=== PATIENT | male | born 1985 | race Caucasian/White ===

== ENCOUNTER 2022-01-22 12:18 | Emergency (ER) | payer SELFPAY ==
[2022-01-22 12:27] VITALS: BP 129/85; PULSE 109; RESP 16; TEMP 36.8; O2SAT 97
[2022-01-22] MEDS: Balanced Salt Solution 15 ML BTL (12:59)
[2022-01-22] MEDS: Fluorescein STRIPS 100/BOX 1 MG (12:59)
[2022-01-22] MEDS: Tetracaine 0.5% 4 ML BTL (12:59)
--- NOTE | 2022-01-22 14:22 | ED.GENADUL_ITS ---
Discharge Plan Disposition Patient Disposition: OTHER Condition: Stable Discharge Details Clinical Impression: Corneal foreign body Primary Care Provider: Yonis Iglesias ED Provider: Malorie Staton Home Meds and New Rx's Prescriptions: Continued buprenorphine-naloxone 8-2 mg tablet, sublingual 1 tab SUBLINGUAL DAILY Label Comments: TAKE 2&1/2 TABLETS ORALLY DAILY Discharge Instructions Instructions: Eye Foreign Body (ED) Additional Instructions: It is extremely important that you go directly and immediately to [facility] Department in [facility] as we discussed for further evaluation and treatment of your corneal foreign body. Please return immediately to the emergency department if you develop any new or worsening symptoms, if your condition does not improve as expected, or if you become otherwise concerned. It is extremely important that you call soon as possible to make an appointment to be seen in follow-up for this visit by your primary care doctor. Referrals: Yonis Iglesias [Primary Care Provider] - Discharge Data Discharge Date/Time-TO BE ENTERED AT DEPARTURE: 01/22/22 14:25 Medical Decision Making Sanket Horowitz is a36 y/o man without reported history of medical problems presenting to the emergency department with eye pain. Pt reports that 2 days ago he was grinding metal. Several hours after this activity he noticed pain in the anterior aspect of his right eye. Pt reports that pain has gradually been getting worse, reports foreign body sensation. Denies deep eye pain, vision changes, purulent discharge, fever, any other pain, vomiting, diarrhea, numbness, weakness, cough, SOB. Pt reports that he has an appointment at [facility] this afternoon, but came to ED because of on-going pain becoming difficult to tolerate, denies any acute change in pain. On exam Pt is well and non-toxic appearing. Punctate corneal foreign body without corneal abrasion or ulceration. Normal visual acuity b/l and in right eye. Exam/hx at this time is not c/w globe rupture, endophthalmitis, glaucoma, acute optial artery/vein pathology. I discussed Pt with [facility], who states Pt can be sent to their office immediately for further evaluation. I discussed plan with Pt for him to be discharged immediately and directly to [facility]. Pt verbalizes understanding and is amenable. I had a discussion with Patient regarding return to emergency department precautions, home care, and importance of outpatient follow-up immediately and directly with [facility] now. Pt verbalizes understanding of the plan and is amenable. Patient discharged to [facility] with clear plan for outpatient follow-up. All questions were answered. Disposition decision was made weighing the risks and benefits of hospitalization versus outpatient treatment, the risk for further decompensation, and the patient's wishes. HPI General Date/Time Provider Initiated Documentation: 01/22/22 12:56 . Limitations to Documentation: no limitations . Information obtained by: patient, RN notes reviewed and old records reviewed . HPI Narrative: Sanket Horowitz is a36 y/o man without reported history of medical problems presenting to the emergency department with eye pain. Pt reports that 2 days ago he was grinding metal. Several hours after this activity he noticed pain in the anterior aspect of his right eye. Pt reports that pain has gradually been getting worse, reports foreign body sensation. Denies deep eye pain, vision changes, purulent discharge, fever, any other pain, vomiting, diarrhea, numbness, weakness, cough, SOB. Pt reports that he has an appointment at [facility] this afternoon, but came to ED because of on-going pain becoming difficult to toerate, denies any acute change in pain. Related Data Home Medications Medication Instructions Recorded Confirmed buprenorphine 8 mg-naloxone 2 mg 1 tab sublingual DAILY 01/22/22 01/22/22 sublingual tablet Allergies Allergy/AdvReac Type Severity Reaction Status Date / Time No Known Allergies Allergy Unverified 01/22/22 12:30 General Stated Complaint: EyeProblem JOSIAH: 4 Review of Systems Narrative: Constitutional: denies fevers Eyes: reports right anterior eye pain/foreign body sensation, denies eye discharge, vision changes, left eye symptoms ENT: denies ear pain, dental pain, sore throat Cardiovascular: denies chest pain Respiratory: denies SOB, cough GI: denies abdominal pain, vomiting, diarrhea : denies flank pain MSK: denies back pain, neck pain, arthralgias, myalgias Skin: denies rash Neuro: denies headaches, numbness, weakness PFSH All Active Problems (Updated 01/22/22 @ 14:20 by Malorie Staton MD) Corneal foreign body (Acute) Social History Smoking/Tobacco Use Status: Current every day Tobacco Type: cigarettes Smoking risk assessment performed?: Yes Drug use: Never Substance use type: does not use Details: is on suboxone Do you feel safe in your relationship?: Yes Exam Narrative Exam Narrative: Constitutional: well and [id number], pleasant, conversing normally HENT: head atraumatic/normocephalic/normal inspection, mucous membranes moist Eyes: bilateral conjunctiva normal, sclera normal, pupils 3mm b/l, right eyelids swept, no FB, apparent punctate corneal FB at 3 o-clock position, no corneal abrasion/ulceration uwith fluorescein staining, negative seidels sign, EOMI intact and painless Neck: no stridor, normal ROM, trachea midline Resp: normal work of breathing, speaking in full sentences Cardio: normal rate, normal rhythm Skin: warm, dry, normal color, no rash Neuro: alert, not altered, grossly non-focal, normal tone Ext: moving all extremities equally Psych: normal mood, normal affect, normal behavior Course Vital Signs Vital signs: Vital Signs Temperature 36.8 C 01/22/22 12:27 Pulse 109 H 01/22/22 12:27 Respiratory Rate 16 01/22/22 12:27 Blood Pressure 129/85 01/22/22 12:27 Pulse Oximetry 97 01/22/22 12:27 Temperature 36.8 C 01/22/22 12:27 Temperature Source Oral 01/22/22 12:27 Pulse 109 H 01/22/22 12:27 Respiratory Rate 16 01/22/22 12:27 Respiratory Effort 01/22/22 12:27 Blood Pressure 129/85 01/22/22 12:27 Blood Pressure Position Sitting 01/22/22 12:27 Pulse Oximetry 97 01/22/22 12:27 Pain Level 6 01/22/22 12:27 PAWSS Have you Been Recently Intoxicated or Drunk Within the Last 30 days?: Yes Have you Ever Experienced Previous Episodes of Alcohol Withdrawal?: No Have you ever Experienced Withdrawal Seizures?: No Have you ever Experienced Delirium Tremens(DT)s?: No Have you ever undergone Alcohol Rehabilitation Treatment (i.e, inpt ot outpatient treatment programs)?: No Have you ever Experienced Blackouts?: Yes Have you ever Combined Alcohol with other Downers within the last 90 days?: No Have you ever Combined Alcohol with any other Substance of Abuse during the last 90 days?: No Result: 2
== END 2022-01-22 14:25 | disposition other institution (70) ==
PROVIDERS: Emergency Provider Student in an Organized Health Care Education/Training Program; PCP Nurse Practitioner Family
DX: T15.01XA Foreign body in cornea, right eye, initial encounter (principal); X58.XXXA Exposure to other specified factors, initial encounter
CPT/HCPCS: 99283

== ENCOUNTER 2024-08-07 12:22 | Emergency (ER) | payer MEDICAID, SELFPAY ==
--- NOTE | 2024-08-07 12:15 | DI.US_ITS ---
Exam(s) US LOWER EXTREMITY VENOUS LT EXAM: US LOWER EXTREMITY VENOUS LT CLINICAL HISTORY: swelling TECHNIQUE: Grayscale, color, and doppler imaging of the deep venous system of the lower extremity w as performed. COMPARISON: No exams were available for comparison FINDINGS: There is no evidence of intraluminal thrombus and there is normal compression and augmentation demons trated within the common femoral vein, femoral vein, and popliteal vein. In the ipsilateral calf the interrogated veins also exhibit normal compression/ augmentation properti es. The ipsilateral saphenofemoral junction is patent. Although there is no evidence of DVT, there are significant findings in the calf. There multiple thr ombosis tortuous varicose veins throughout the length of the medial calf with extension of intralumin al thrombus into varicose veins at the level of the knee and distal thigh. The approximate length of the thrombus is 24 cm and the cephalad extent of the thrombus is less than 1 cm from the greater sap henous vein in the distal thigh (just above the knee). There is no evidence of intraluminal thrombus within the greater saphenous vein at and above the knee level. The greater saphenous vein in the ip silateral calf is also not involved. IMPRESSION: 1. No evidence of DVT in the left lower extremity. 2. However, there is extensive thrombosis of varicose veins in the ipsilateral calf as described abo ve. Discussed by phone with ER physician. DATA REPOSITORY:
[2024-08-07 12:27] VITALS: BP 143/92; PULSE 99; RESP 17; TEMP 36.6; O2SAT 99
[2024-08-07 12:51] VITALS: RESP 16
--- NOTE | 2024-08-07 13:35 | W.ED.GENAD ---
Discharge Plan Disposition Patient Disposition: Home Condition: Stable Discharge Details Clinical Impression: Acute superficial venous thrombosis of left lower extremity Primary Care Provider: Zina Rick ED Provider: Cesar Staton Home Meds and New Rx's Prescriptions: New Xarelto 10 mg tablet 10 mg PO DAILY Qty: 44 0RF Rx Instructions: for 35 days Continued acetaminophen 500 mg capsule 500 mg PO DIRECTED PRN buprenorphine-naloxone [Suboxone] 12-3 mg film 1 film sublingual DAILY Patient Comments: PLACE ONE FILM UNDER THE TONGUE EVERY MORNING buprenorphine-naloxone [Suboxone] 8-2 mg film 1 film sublingual DAILY Patient Comments: PLACE ONE FILM UNDER THE TONGUE EVERY MORNING Discontinued ibuprofen 400 mg tablet 400 mg PO Q8H Discharge Instructions Instructions: Superficial vein phlebitis and thrombosis Additional Instructions: Please take blood thinner Xarelto as prescribed. You were given your initial dose here in the emergency department today. Your next dose is tomorrow. Please be sure to pick pulling machine tender your prescription prior to tomorrow afternoon. Please follow-up with your primary care physician. Call today to arrange timely follow-up. You will need reassessment and additional outpatient diagnostic testing. Return to the ER immediately for any worsening or new concerning symptoms. Referrals: Zina Rick [Primary Care Provider] - Discharge Data Discharge Date/Time-TO BE ENTERED AT DEPARTURE: 08/07/24 13:54 HPI General Mode of arrival: ambulatory. Date/Time Provider Initiated Documentation: 08/07/24 12:26. Limitations to Documentation: no limitations. Information obtained by: patient. HPI Narrative: 39-year-old male presents with approximately 2 weeks of left lower extremity swelling and pain. Sent by PCP who was concerned for DVT. No associated fever. No prolonged immobility, surgery or trauma recently. Related Data Home Medications ?Medication ?Instructions ?Recorded ?Confirmed acetaminophen 500 mg capsule 500 mg PO DIRECTED PRN 10/10/22 08/07/24 buprenorphine 12 mg-naloxone 3 mg 1 film sublingual DAILY 08/07/24 08/07/24 sublingual film (Suboxone) buprenorphine 8 mg-naloxone 2 mg 1 film sublingual DAILY 08/07/24 08/07/24 sublingual film (Suboxone) rivaroxaban 10 mg tablet (Xarelto) 10 mg PO DAILY #44 tabs 08/07/24 Previous Rx's ?Medication ?Instructions ?Recorded rivaroxaban 10 mg tablet (Xarelto) 10 mg PO DAILY #44 tabs 08/07/24 Allergies Allergy/AdvReac Type Severity Reaction Status Date / Time No Known Allergies Allergy Unverified 08/07/24 12:31 General Stated Complaint: Vascular JOSIAH: 2 Review of Systems Constitutional Constitutional: Denies fever(s) Cardiovascular Cardiovascular: Denies chest pain Exam Const General: cooperative and no acute distress Resp Auscultation: clear to auscultation bilaterally, no rales, no rhonchi and no wheezes Cardio Rate: regular rate and not tachycardic Rhythm: regular rhythm Skin General skin exam: no rashes or lesions noted Neuro General: patient alert, patient awake and tone normal Extrem General: other (LLE swelling and varicose veins ttp over medial knee, no erythema) Course Vital Signs Vital signs: Vital Signs Temperature 36.6 C 08/07/24 12:27 Pulse 99 H 08/07/24 12:27 Respiratory Rate 17 08/07/24 12:27 Blood Pressure 143/92 H 08/07/24 12:27 Pulse Oximetry 99 08/07/24 12:27 Temperature 36.6 C 08/07/24 12:27 Temperature Source Oral 08/07/24 12:27 Pulse 99 H 08/07/24 12:27 Respiratory Rate 16 08/07/24 12:51 Respiratory Effort Normal 08/07/24 12:51 Respiratory Depth Normal 08/07/24 12:51 Respiratory Pattern Normal 08/07/24 12:51 Blood Pressure 143/92 H 08/07/24 12:27 Blood Pressure Position Sitting 08/07/24 12:27 Pulse Oximetry 99 08/07/24 12:27 Oxygen Delivery Method Room Air 08/07/24 12:27 Oxygen Flow Rate 0 08/07/24 12:27 Pain Level 4 08/07/24 12:27 Comment Worse with exertion. 08/07/24 12:27 Medical Decision Making 39-year-old male presents with approximately 2 weeks of left lower extremity swelling and pain. Sent by PCP who was concerned for DVT. Patient is hemodynamically stable. Saturating well in no respiratory distress. Exam consistent with likely superficial thrombophlebitis. Considered DVT. Left lower extremity ultrasound was interpreted by Dr. Cleary. I spoke with Dr. Cleary who notes ultrasound demonstrates extensive superficial venous thrombus. Plan to initiate treatment with Xarelto 10 mg x 45 days and will have the patient follow-up with PCP. Imaging Data Radiologic Study: Imaging: Ultrasound Radiologist's impression: There is no evidence of intraluminal thrombus and there is normal compression and augmentation demonstrated within the common femoral vein, femoral vein, and popliteal vein. In the ipsilateral calf the interrogated veins also exhibit normal compression/ augmentation properties. The ipsilateral saphenofemoral junction is patent. Although there is no evidence of DVT, there are significant findings in the calf. There multiple thrombosis tortuous varicose veins throughout the length of the medial calf with extension of intraluminal thrombus into varicose veins at the level of the knee and distal thigh. The approximate length of the thrombus is 24 cm and the cephalad extent of the thrombus is less than 1 cm from the greater saphenous vein in the distal thigh (just above the knee). There is no evidence of intraluminal thrombus within the greater saphenous vein at and above the knee level. The greater saphenous vein in the ipsilateral calf is also not involved. Quality:SDOH Health Related Social Needs: No Data to Display PFSH All Active Problems (Updated 08/07/24 @ 13:35 by Cesar Staton MD) Acute superficial venous thrombosis of left lower extremity (Acute) Medical History (Updated 08/07/24 @ 13:35 by Cesar Staton MD) PTSD (post-traumatic stress disorder) Adjustment disorder with anxiety Opioid use disorder Social History Smoking/Tobacco Use Status: Current every day Tobacco Type: cigarettes Smoking risk assessment performed?: Yes Drug use: Never Substance use type: does not use Details: is on suboxone Housing: apartment Do you feel safe in your relationship?: Yes
--- OUTSIDE RECORDS SUMMARY | 2024-08-07 13:36 | XMS_ITS | Encounter Summary ---
Author Organization [facility] Address [address] [place] [id number] Care Team Providers Care Missile Inspector Name Role Phone Katharine Cortés ALYSIA Primary Care Provider [phone] Reason for Visit * Reason Onset Date Comments Appointment Related 03/21/2022 Encounter Details Date Type Department Care Team (Late st Contact Info) Description 03/21/2022 Telephone [facility] - [address] [address] Hannah Waggoner MD [address] [place] [address], [address] [place] [id number] Appointment Related Social History Tobacco Use Types Packs/Day Years Used Date Smoking Tobacco: Every Day Smokeless Tobacco: Never Alcohol Use Standard Drinks/Week Comments Yes 0 (1 standard drink = 0.6 oz pur e alcohol) Sex and Gender Information Value Date Recorded Sex Assigned at Not on file Legal Sex Male 23:41 EDT Gender Identity Male 03/04/2022 7:43 EDT Sexual Orientation Not on file COVID-19 Exposure Response Date Recorded In the last 10 days, have yo u been in contact with someone who was confirmed or suspected to have Coronavirus/COVID-19? Unable to assess 03/04/2022 0:08 EDT documented as of this encounter Functional Status * Are you deaf or do you have serious difficulty hearing? Answer Date of Assessment Author No 03/04/2022 0:44 EDT Sumit Blackwood RN documented as of this encounter Miscellaneous Notes * Telephone Encounter - Nichelle Ashley RN - 03/21/20[address] Waggoner in clinic. Sutures are Vicryl and OK to fall out, but patient should notbe actively pulling them out. If there is a wound, it will heal by secondary intention. Patient reports no open wound; healing well. Patient verbalized understanding and denied additionalquestions. * Telephone Encounter - Eleonora Waddell - 03/21/2022 1532 EDT Spoke to pt with new ultrasound date 04/06/22 check in at 1315 for 1345 scan. Patient has questions regarding his stitches that are falling out. Will route to nursing. * Telephone Encounter - Nohemi Wolff - 03/21/2022 1145 EDT Patient unable to make the u/s today and needs to reschedule both appointments. Plate Glass Polisher transferred to exterminator helper. documented in this encounter Plan of Treatment Not on file documented as of this encounter Visit Diagnoses Not on filedocumented in this encounter Care Teams Missile Inspector Relationship Specialty Start Date End Date Katharine Cortés APRN [address] [place] [id number] PCP - General Family Medicine - Primary Care 03/21/22 documented as of this encounter
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
--- OUTSIDE RECORDS SUMMARY | 2024-08-07 13:36 | XMS_ITS | Encounter Summary ---
Author Organization [facility] Address [address] [place] [address] Care Team Providers Care Golf Technician Name Role Phone None, Provider Primary Care Provider Unavailabl e Reason for Visit * Reason Onset Date Comments Other 03/14/2022 Encounter Details Date Type Department Care Team (Late st Contact Info) Description 03/14/2022 Telephone [facility] Sports Medicine Program - [address] [place] [address] Dayanara Carrera RN [address] [place] [address] Other Social History Tobacco Use Types Packs/Day Years [...] encounter Miscellaneous Notes * Telephone Encounter - Dayanara Carrera RN - 03/14/2022 1005 EDT Called susana to see where he is as he had an appointment with Dr. Frank today to post op eval. No answer- left a msg asking him to call the office Called second number on file- Susana answered stated that he couldn't make it today and was unable to come in today, he would like to reschedule the appointment. He states he has been doing okay painwise. I explained to him how important follow up is following this type of injury. He verbalized an understanding. New appointment will be made with trauma team. documented in this encounter Plan of Treatment Not on file documented as of this encounter Visit Diagnoses Not on filedocumented in this encounter Care Teams Golf Technician Relationship Specialty Start Date End Date None, Provider PCP - General 03/04/22 03/20/22 documented as of this encounter
--- OUTSIDE RECORDS SUMMARY | 2024-08-07 13:36 | XMS_ITS | Encounter Summary ---
Author Organization [facility] Address [address] [place] [address] Care Team Providers Care Sand Mill Operator Core Sand Name Role Phone Katharine Cortés ALYSIA Primary Care Provider [phone] Encounter Details Date Type Department Care Team (Late st Contact Info) Description 04/02/2022 Orders Only [facility] Orthopedic Trauma - [address] [address] Israel Hopkins MD [address] [place] [address] Closed fracture of shaft of right femur with routine healing, unspecified fracture morphology, subsequent encounter (Primary Dx) Social History Tobacco [...] Blackwood RN documented as of this encounter Plan of Treatment Not on file documented as of this encounter Results * XR FEMUR RIGHT 2 OR MORE VIEWS (04/13/2022 11:43 EDT) Anatomical Region Laterality Modality Lower Extremities Right Computed Radio graphy 04/13/2022 12:1 2 EDT Impressions 04/13/2022 12:12 EDT FINDINGS / IMPRESSION: AP and lateral views of the right femur show interval intramedullary nailing of the proximal femur with 2 proximal pins and 2 distal interlocking screws. The comminuted femoral fracture shows evidence of ongoing healing with satisfactory alignment. There is punctate metallic debris around the fracture site. Narrative 04/13/2022 12:12 EDT EXAM/TECHNIQUE: XR FEMUR RIGHT 2 OR MORE VIEWS ??04/13/2022 11:10 AM HISTORY: ?? Assess healing COMPARISON: Preoperative radiographs 03/04/2022. Procedure Note Jovan Kearns, DO - 04/13/2022 EXAM/TECHNIQUE: XR FEMUR RIGHT 2 OR MORE VIEWS 04/13/2022 11:10 AM HISTORY: Assess healing COMPARISON: Preoperative radiographs 03/04/2022. IMPRESSION FINDINGS / IMPRESSION: AP and lateral views of the right femur show interval intramedullarynailing of the proximal femur with 2 proximal pins and 2 distalinterlocking screws. The comminuted femoral fracture shows evidence ofongoing healing with satisfactory alignment. There is punctate metallicdebris around the fracture site. us Israel Hopkins MD IMG DIAGNOSTIC IMAGING ORD ERABLES Final Result documented in this encounter Visit Diagnoses Diagnosis Closed fracture of shaft of right femur with routine healing, unspecified fracture morphology, subsequent encounter- Primary Closed fracture of shaft of right femur with routine healing, unspecified fracture morphology, subsequent encounter documented in this encounter Care Teams Sand Mill Operator Core Sand Relationship Specialty Start Date End Date Katharine Cortés APRN [address] [place] [phone] PCP - General Family Medicine - Primary Care 03/21/22 documented as of this encounter
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
--- OUTSIDE RECORDS SUMMARY | 2024-08-07 13:36 | XMS_ITS | Encounter Summary ---
Author Organization [facility] Address [address] [place] [address] Care Team Providers Care Weight And Test Bar Clerk Name Role Phone Katharine Cortés ALYSIA Primary Care Provider [phone] Encounter Details Date Type Department Care Team (Latest Contact Info) Description 04/13/2022 11:10 EDT - 04/13/2022 23:59 EDT [address] Encounter [address] [place], [place] [id number] Closed fracture of shaft of right femur with routine healing, unspecified fracture morphology, subsequent encounter Discharge Disposition: Home or Self Care Social History Tobacco Use Types Packs/Day Years [...] Blackwood RN documented as of this encounter Medications at Time of Discharge bacitracin zinc 500 unit/gram ointment Apply thin film. 14 g 03/06/2022 lidocaine-priloc delmer (EMLA) cream Apply to penis 20-30 minutes prior to intercourse and wipe off. 30 g 2 04/11/2022 methocarbamoL (ROBAXIN) 500 mg tablet Take 1-2 Tablets by mouth 4 times daily. 60 Tablet 03/16/2022 methocarbamoL (ROBAXIN) 500 mg tablet Take 2 Tablets by mouth every 6 hours as needed (muscle spasms). 25 Tablet 03/06/2022 oxyCODONE (ROXICODONE) 10 mg immediate release tablet Take 0.5-1 Tablets by mouth every 6 hours as needed for Pain. Daily Max: 40 mg 24 Tablet 03/06/2022 polyethylene glycol 3350 (MIRALAX) 17 gram packet Take 17 g by mouth daily as needed (constipation). 03/06/2022 documented as of this encounter Discharge Disposition Disposition Code Departure Means Destination Home or Self Care documented in this encounter Plan of Treatment Not on file documented as of this encounter Procedures Procedure Name Priority Date/Time Associated Diagnosis Comments XR FEMUR RIGHT 2 OR MORE VIEWS Routine 04/13/2022 11:43 EDT Closed fracture of shaft of right femur with routine healing, unspecified fracture morphology, subsequent encounter documented in this encounter Results * XR FEMUR RIGHT [...] Preoperative radiographs 03/04/2022. Procedure Note Jovan Kearns, - 04/13/2022 EXAM/TECHNIQUE: XR FEMUR RIGHT 2 [...] encounter documented in this encounter Care Teams Weight And Test Bar Clerk Relationship Specialty Start Date End Date Katharine Cortés APRN [address] [place] [phone] PCP - General Family Medicine - Primary Care 03/21/22 documented as of this encounter
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
--- OUTSIDE RECORDS SUMMARY | 2024-08-07 13:36 | XMS_ITS | Encounter Summary ---
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 Maldonado RN) 1019 (Given - Provider: Ilya Howard, JOAQUÍN) 0911 (Given - Provider: Ilya Howard, JOAQUÍN) docusate sodium (COLACE) capsule 200 mg 200 mg, oral, 2 TIMES DAILY, First dose on 03/04/22 at 2100, Until Discontinued, Routine 2017 (Given - Provider: Ena Pascual RN) 0804 (Given - Provider: Ilya Howard, JOAQUÍN)2017 (Given - Provider: Raegan Archuleta, JOAQUÍN) 0911 (Given - Provider: Ilya Howard, JOAQUÍN) enoxaparin (LOVENOX) injection 30 mg 30 mg, subcutaneous, EVERY 12 HOURS, First dose on Sat03/05/22 at 0900, Until Discontinued, Routine 08 (Given - Provider: Ilya Howard, JOAQUÍN)2017 (Given - Provider: Raegan Archuleta RN) 0912 (Given - Provider: Ilya Howard, JOAQUÍN) fentaNYL citrate (PF) injection 100 mcg (COMPLETED) 100 mcg, intravenous, NOW X1, 1 dose, On 03/04/22 at 0545, STAT 0558 (Given - Provider: Stacie Joseph RN - Comment: Given by previous shift RN, please see paper trauma record) fentaNYL citrate (PF) injection 50 mcg (COMPLETED) 50 mcg, intravenous, NOW X1, 1 dose, On 03/04/22 at 0630, STAT 0621 (Given - Provider: Magui Yang RN) iohexoL (OMNIPAQUE 350) solution 150 mL (COMPLETED) 150 mL, intravenous, Once in imaging, 1 dose, Starting on 03/04/22 at 0210, Until 03/04/22 at 0238, Routine, Imaging Protocol Orders 0238 (Given - Provider: Araceli Marin) ketAMINE in NaCl, iso-osmotic (KETALAR) 50 mg/5 mL (10 mg/mL) IV injection 20 mg (COMPLETED) 20 mg, intravenous, NOW X1, 1 dose, On 03/04/22 at 0545, STAT 0557 (Given - Provider: Stacie Joseph RN - Comment: Given by previous shift RN- please see paper trauma record) metronidazole (FLAGYL) infusion 500 mg 500 mg, intravenous, Administer over 30 Minutes, PRE-OP ONCE, 1 dose, On 05/06/22 at 0800, Type of Therapy: Empiric, Suspected Indication (Select all that apply): Other, Other Indication: soil contaminated trauma, ID Consult: No, Routine Multivitamins with Minerals tablet 1 Tablet 1 Tablet, oral, DAILY, First dose on 03/04/22 at 1815, Until Discontinued, Routine 1832 (Given - Provider: Levi Maldonado RN) 1019 (Given - Provider: Ilya Howard RN) 0911 (Given - Provider: Ilya Howard RN) polyethylene glycol 3350 (MIRALAX) packet 17 g 17 g, oral, DAILY, First dose on 03/04/22 at 1815, Until Discontinued, Routine 1756 (Not Given - Provider: Levi Maldonado RN - Reason: Patient/family refused) 0803 (Given - Provider: Ilya Howard, JOAQUÍN) 0912 (Given - Provider: Ilya Howard, JOAQUÍN) povidone-iodine solution 5% (Skin and Nasal Antiseptic) 1 Kit 1 Kit, nasal, Once (Without Time Specified), 1 dose, Starting on 03/04/22 at 1746, Until Sat03/06/22 at 1936, Routine senna (SENOKOT) tablet 2 Tablet 2 Tablet, oral, 2 TIMES DAILY, First dose on 03/04/22 at 2100, Until Discontinued, Routine 2017 (Given - Provider: Ena Pascual, RN) 0805 (Given - Provider: Ilya Howard, RN)2016 (Given - Provider: Raegan Archuleta RN) 09 (Given - Provider: Ilya Howard, RN) zinc sulfate (ZINCATE) capsule 220 mg 220 mg, oral, DAILY, First dose on 03/04/22 at 1815, Until Discontinued, Routine 183 (Given - Provider: Levi Maldonado RN) 1019 (Given - Provider: Ilya Howard, JOAQUÍN) 09 (Given - Provider: Ilya Howard, JOAQUÍN) Continuous Medication Order 03/04/2022 03/05/2022 03/06/2022 lactated ringers (LR) infusion at 25 mL/hr, intravenous, CONTINUOUS, Starting on 03/04/22 at 1100, Until Sat03/06/22 at 1936, Routine, Preprocedure 1031 (New Bag - Provider: Goldie Fuentes RN)1113 (Paused - Provider: SAMMY Bush - Comment: Switch to gravity)1114 (Restarted - Provider: SAMMY Bush)1127 (Continued by Anesthesia - Provider: SAMMY Bush)1254 (New Bag - Provider: SAMMY Bush)1405 (Anesthesia Volume Adjustment - Provider: SAMMY Bush)1545 (Anesthesia Volume Adjustment - Provider: SAMMY Bush) lactated ringers (LR) infusion (CANCELED) at 100 mL/hr, intravenous, PACU CONTINUOUS, Starting on 03/04/22 at 1530, Until 03/04/22 at 1745, Routine, Recovery (only) 1545 (Rate Documented - Provider: Padmini Ryan RN)1615 (New Bag - Provider: Padmini Ryan RN) PRN Medication Order 03/04/2022 03/05/202203/06/2022 bisacodyL (DULCOLAX) suppository 10 mg 10 mg, rectal, DAILY PRN, Starting on Sat03/04/22 at 1746, Until Sat03/06/22 at 1936, Constipation, Routine bupivacaine (PF) (MARCAINE) 0.25 % (2.5 mg/mL) injection (CANCELED) PRN, Starting on Sat03/04/22 at 1524, Until Sat03/04/22 at 1539, Routine, Intraprocedure 1524 (Given - Provider: Hannah Waggoner MD) calcium carbonate (TUMS) 200 mg calcium (500 mg) per chewable tablet tablet,chewable 2 Tablet 2 Tablet, oral, EVERY 2 HOURS PRN, Starting on Sat03/04/22 at 1746, Until Sat03/06/22 at 1936, epigastric stress, Routine meperidine (PF) (DEMEROL) injection 12.5 mg 12.5 mg, intravenous, EVERY 1 HOUR PRN, 2 doses, Starting on Sat03/04/22 at 1548, Until Sat03/06/22 at 1936, shivering, Routine methocarbamoL (ROBAXIN) tablet 1,000 mg 1,000 mg, oral, EVERY 6 HOURS PRN, Starting on Sat03/04/22 at 1727, Until Sat03/06/22 at 1936, muscle spasms, Routine 1728 (Given - Provider: Padmini Ryan RN) 0216 (Given - Provider: Ena Pascual RN)0805 (Given - Provider: Ilya Howard RN)1455 (Given - Provider: Ilya Howard, JOAQUÍN) 0911 (Given - Provider: Ilya Howard, RN) nicotine (NICOTROL) 10 mg inhaler kit 1 Inhaler 1 Inhaler, inhalation, EVERY 2 HOURS PRN, Starting on Sat03/05/22 at 0014, Until Sat03/06/22 at 1936, Smoking Cessation, Routine 0420 (Given - Provider: Ena Pascual RN)1455 (Given - Provider: Ilya Howard, JOAQUÍN) nicotine inhaler (delivery device) 1 Each, inhalation, PRN, Starting on Sat03/05/22 at 0022, Until Sat03/06/22 at 1936, Smoking Cessation 0420 (Given - Provider: Ena Pascual RN)1455 (Given - Provider: Ilya Howard, JOAQUÍN) ondansetron (PF) (ZOFRAN) injection 4 mg(Linked Group 2) 4 mg, intravenous, EVERY 6 HOURS PRN, Starting on Sat03/04/22 at 1746, Until Sat03/06/22 at 1936, Nausea, Routine ondansetron (ZOFRAN-ODT) disintegrating tablet 4 mg(Linked Group 2) 4 mg, oral, EVERY 6 HOURS PRN, Starting on Sat03/04/22 at 1746, Until Sat03/06/22 at 1936, Nausea, Routine oxyCODONE (ROXICODONE) immediate release tablet 5-10 mg 5-10 mg, oral, EVERY 4 HOURS PRN, Starting on Sat03/06/22 at 1245, Until Sat03/06/22 at 1936, Pain, Routine 1421 (Given - Provider: Ilya Howard RN) oxyCODONE (ROXICODONE) immediate release tablet 5-15 mg (CANCELED) 5-15 mg, oral, EVERY 3 HOURS PRN, Starting on Sat03/04/22 at 1727, Until Sat03/06/22 at 1238, Pain, Routine 1728 (Given - Provider: Padmini Ryan RN)2017 (Given - Provider: Ena Pascual RN) 0216 (Given - Provider: Ena Pascual RN)0621 (Given - Provider: Ena Pascual RN)1018 (Given - Provider: Ilya Howard, JOAQUÍN)1330 (Given - Provider: Ilya Howard, JOAQUÍN)1813 (Given - Provider: Ilya Howard, JOAQUÍN) 0628 (Given - Provider: Raegan Archuleta RN)1025 (Given - Provider: Ilya Howard, JOAQUÍN) No Frequency Medication Order 03/04/2022 03/05/2022 03/06/2022 dexAMETHasone (PF) (DECADRON) 10 mg/mL injection 1 dose, Starting on Sat03/04/22 at 0855, Until Sat03/06/22 at 1936 ropivacaine (PF) (NAROPIN) 5 mg/mL (0.5 %) injection 1 dose, Starting on Sat03/04/22 at 0855, Until Sat03/06/22 at 1936 Linked Groups Order Group 1: acetaminophen (TYLENOL) tablet 1,000 mgJump to med 1,000 mg, oral, EVERY 6 HOURS, First dose on Sat03/04/22 at 2000, Until Discontinued, Routine Or acetaminophen (TYLENOL) suppository 975 mgJump to med 975 mg, rectal, EVERY 6 HOURS, First dose on Sat03/04/22 at 2000, Until Discontinued, Routine Group 2: ondansetron (ZOFRAN-ODT) disintegrating tablet 4 mgJump to med 4 mg, oral, EVERY 6 HOURS PRN, Starting on Sat03/04/22 at 1746, Until Sat03/06/22 at 1936, Nausea, Routine Or ondansetron (PF) (ZOFRAN) injection 4 mgJump to med 4 mg, intravenous, EVERY 6 HOURS PRN, Starting on Sat03/04/22 at 1746, Until Sat03/06/22 at 1936, Nausea, Routine documented in this encounter Orders Medications Ordered That Fernando ht Not Have Been Administered Count Last Ordered Date First Ordered Date ceFAZolin (ANCEF) syringe 2 g 2 05/06/2022 03/04/2022 metronidazole (FLAGYL) infusion 500 mg 1 bacitracin zinc 500 unit/gram ointment 1 acetaminophen (TYLENOL) suppository 975 mg 1 03/04/2022 atropine 0.1 mg/mL syringe 0.5 mg 1 022 bisacodyL (DULCOLAX) suppository 10 mg 1 bupivacaine (PF) (MARCAINE) 0.25 % (2.5 mg/mL) injection 1 03/04/2022 calcium carbonate (TUMS) 200 mg calcium (500 mg) per chewable tablet tablet,chewable 2 Tablet 1 03/04/2022 ceFAZolin in dextrose (iso-o s) piggyback 2 g/100 mL 2 03/04/2022 dexAMETHasone (PF) (DECADRON ) 10 mg/mL injection 1 03/04/2022 diphenhydrAMINE (BENADRYL) i njection 12.5 mg 1 03/04/2022 fentaNYL citrate (PF) 50 mcg/mL injection 2 03/04/2022 fentaNYL citrate (PF) injection 25-50 mcg 1 03/04/2022 HYDROmorphone (DILAUDID) tablet 2-4 mg 1 HYDROmorphone (PF) (DILAUDID ) 0.5 mg/0.5 mL syringe 0.3-0.5 mg 1 03/04/2022 ketAMINE (KETALAR) 10 mg/mL IV injection vial 1 03/04/2022 meperidine (PF) (DEMEROL) in jection 12.5 mg 1 03/04/2022 midazolam (MDV) (VERSED) 1 mg/mL injection 1 03/04/2022 naloxone (NARCAN) injection 0.2 mg 1 2021 ondansetron (PF) (ZOFRAN) injection 4 mg 2 03/04/2022 ondansetron (ZOFRAN-ODT) dis integrating tablet 4 mg 1 03/04/2022 povidone-iodine solution 5% (Skin and Nasal Antiseptic) 1 Kit 1 03/04/2022 ropivacaine (PF) (NAROPIN) 5 mg/mL (0.5 %) injection 1 03/04/2022 Diet Count Last Ordered Date First Orde red Date DISCHARGE DIET 1 03/06/2022 Nursing Count Last Ordered Date First Orde red Date ACTIVITY INSTRUCTIONS 3 03/06/2022 BATHING INSTRUCTIONS 1 03/06/2022 WOUND CARE INSTRUCTIONS 2 03/06/2022 CONTRAINDICATION TO ANTICOAG ULATION THERAPY 1 03/04/2022 PT Count Last Ordered Date First Orde red Date PT EVALUATION AND TREAT 1 03/06/2022 Respiratory Care Count Last Ordered Date First Ordered Date DRY POWDERED OR METERED DOSE INHALER 1 02/15 IV Count Last Ordered Date First Orde red Date IV REQUEST 1 03/05/2022 Admission Count Last Ordered Date First Orde red Date ADMIT TO INPATIENT 1 03/04/2022 Transfer Count Last Ordered Date First Orde red Date ED BED REQUEST 1 03/04/2022 Discharge Count Last Ordered Date First Orde red Date DISCHARGE PATIENT 1 03/06/2022 Legal Count Last Ordered Date First Orde red Date MISCELLANEOUS DISCHARGE INSTRUCTIONS 2 02/15 Equipment Count Last Ordered Date First Orde red Date WALKER 1 03/06/2022 Case Request Count Last Ordered Date First Orde red Date CASE REQUEST OPERATING ROOM 1 03/04/2022 documented in this encounter Care Teams Pairer Odds Relationship Specialty Start Date End Date None, Provider PCP - General 03/04/22 03/20/22 documented as of this encounter
--- OUTSIDE RECORDS SUMMARY | 2024-08-07 13:36 | XMS_ITS | Encounter Summary ---
Author Organization [facility] Address [address] [place] [id number] Care Team Providers Care Dowel Setting Machine Operator Name Role Phone Katharine Cortés APRN Primary Care Provider [phone] Reason for Referral * Radiology Services (Routine/Next Available) - Authorization Not Required Specialty Diagnoses / Procedures Referred By Lionac t Referred To Contact Diagnoses Testicular injury, initial encounter Procedures US SCROTUM WITH LIMITED DOPPLER SleepKatharine concepcion PA-C Phone: tel: fax: [facility] Referral ID Status Reason Start Date Expiration Date Visits Requested Visits Authorized [id number] Authorization Not Required 03/05/2022 1 1 Reason for Visit * Radiology Services (Routine/Next Available) - Authorization Not Required Specialty Diagnoses / Procedures Referred By Jamal elaine Referred To Contact Diagnoses Testicular injury, initial encounter Procedures US SCROTUM WITH LIMITED DOPPLER SleepKatharine concepcion PA-C Phone: tel: fax: [facility] Referral ID Status Reason Start Date Expiration Date Visits Requested Visits Authorized [id number] Authorization Not Required 03/05/2022 1 1 Encounter Details Date Type Department Care Team (Latest Contact Info) Description 04/06/2022 13:45 EDT - 04/06/2022 23:59 EDT Hospital Encounter [facility] Radiology - [address] [phone] Testicular injury, initial encounter Discharge Disposition: Home or Self Care [...] 03/06/2022 methocarbamoL (ROBAXIN) 500 mg tablet Take 1-2 [...] 17 g by mouth daily as needed (constipation) . 03/06/2022 documented as of this encounter Discharge Disposition Disposition Code Departure Means Destination Home or Self Care documented in this encounter Plan of Treatment Not on file documented as of this encounter Procedures Procedure Name Priority Date/Time Associated Diagnosis Comments US SCROTUM WITH LIMITED DUPLEX Routine 04/06/2022 15:02 EDT Testicular injury, initial encounter documented in this encounter Results * US [...] PA-C IMG US ORDERABLES Final Res ult documented in this encounter Visit Diagnoses Diagnosis Testicular injury, initial encounter documented in this encounter Care Teams Dowel Setting Machine Operator Relationship Specialty Start Date End Date Katharine Cortés, ALYSIA [address] [place] [address] PCP - General Family Medicine - Primary Care 03/21/22 documented as of this encounter
--- OUTSIDE RECORDS SUMMARY | 2024-08-07 13:36 | XMS_ITS | Encounter Summary ---
Author Organization [facility] Address [address] [place] [id number] Care Team Providers Care Director Alumni Relations Name Role Phone None, Provider Primary Care Provider Unavailabl e Reason for Visit * Reason Onset Date Comments Other 03/13/2022 Encounter Details Date Type Department Care Team (Late st Contact Info) Description 03/13/2022 Telephone [facility] Sports Medicine Program - [address] [place] [address] Dayanara Carrera RN [address] [place] [address] Other Social History Tobacco Use Types Packs/Day [...] Telephone Encounter - Dayanara Carrera RN - 03/13/2022 1147 EDT Received a voicemail that Sanket is looking for a refill of robaxin. I called him back, in has muscle spasms in back of calf and posterior thigh especially after he hasbeen sitting down for a while. He reports that the muscle relaxants really help, he reports the spasms are intermittent. No s/s of blood clot. Taking Lovenox for DVT proph. Without issues Knee incisions medial spot using bandages to keep it covered as it was draining clear yellow drainage. No s/s of infection Incisions x3 on the thigh intact with dressing. [facility] seeing him (PT and nurse) Offered him an appointment today for eval, he declined to come in today for eval. Explained to him that we are happy to write him for more robaxin but Dr. Woodward would like to see an evaluate him prior to writing a script as we cannot determine why is going on. Discussed with trauma RN who said he can come into the clinic tomorrow 03/14/22 @9:45- appointment made Called [facility] to check in and see when they are seeing the patient again- awaiting call back Addendum: Reina from called back: Nursing has seen him once, no concerns at that time- social work is working with him. He stated he couldn't see nursing today as he had to move out of his current residence. Called [employer] food insecurity and looking for home. He was scheduled to see a nurse tomorrow but will be moved since he is seeing surgeon tomorrow and will schedule for a nurse visit for documented in this encounter Plan of Treatment Not on file documented as of this encounter Visit Diagnoses Not on filedocumented in this encounter Care Teams Director Alumni Relations Relationship Specialty Start Date End Date None, Provider PCP - General 03/04/22 03/20/22 documented as of this encounter
--- OUTSIDE RECORDS SUMMARY | 2024-08-07 13:36 | XMS_ITS | Encounter Summary ---
Author Organization [facility] Address [address] [place] [address] Care Team Providers Care Drawing Operator Name Role Phone Katharine Cortés APRN Primary Care Provider [phone] Encounter Details Date Type Department Care Team (Late st Contact Info) Description 06/07/2022 Orders Only [facility] Orthopedic Trauma - [address] [address] Israel Hopkins MD [address] [place] [address] Type I or II open fracture of right femur with routine healing, unspecified fracture morphology, unspecified portion of femur, subsequent encounter (Primary Dx) Social History Tobacco [...] as of this encounter Visit Diagnoses Diagnosis Type I or II open fracture of right femur with routine healing, unspecified fracture morphology, unspecified portion of femur, subsequent encounter- Primary documented in this encounter Care Teams Drawing Operator Relationship Specialty Start Date End Date Katharine Cortés APRN [address] [place] [address] PCP - General Family Medicine - Primary Care 03/21/22 documented as of this encounter
--- OUTSIDE RECORDS SUMMARY | 2024-08-07 13:36 | XMS_ITS | Referral Summary ---
Author Organization [facility] Address [address] [place] [address] Care Team Providers Care Black Top Machine Operator Name Role Phone Katharine Cortés Alem HATFIELD Primary Care Provider [phone] Allergies No known active allergies Medications polyethylene [...] femu r, initial encounter for closed fracture ([facility]) 03/04/2022 Overview (03/04/2022): Added automatically from request for surgery [id number] History of femur fracture 03/04/2022 Immunizations Name Administration Dates Next Due Covid-19 mRNA Vaccine (MODER NA COVID-19) PF 0.5 ml IM (12 yrs+) 01/25/2021,12/29/2020 Tdap Vaccine =>7YO IM 03/04/2022 Social History Tobacco Use Types Packs/Day Years Used Date Smoking Tobacco: Every Day Smokeless Tobacco: Never Alcohol Use Standard Drinks/Week Comments Yes 0 (1 standard drink = 0.6 oz pur e alcohol) Sex and Gender Information Value Date Recorded Sex Assigned at Not on file Legal Sex Male 23:41 EDT Gender Identity Male 03/04/2022 7:43 EDT Sexual Orientation Not on file Last Filed Vital Signs Vital Sign Reading [...] Body Mass Index 23.49 03/04/2022 0026 EDT Functional Status * Are you deaf or do you have serious difficulty hearing? Answer Date of Assessment Author No 03/04/2022 0:44 EDT Sumit Blackwood, JOAQUÍN Plan of Treatment Not on file Medical Devices Implanted Type Area Precision Dancer Device Identifier Shelf Expiration Date Model / Serial / Lot Nail Femoral Gt Right 11 X 400mm - [id number] Implanted:Qty : 1 on 03/04/2022 by Sanket Woodward MD at [facility] Nail Right: Femur [employer] [id number] 07/16/2029 [id number] S / / [id number] Screw Bone Locking Jovan Fem Pt [id number] T2 [id number] - [id number] Implanted:Qty : 1 on 03/04/2022 by Sanket Woodward MD at [facility] Screw Implant Right: Femur [employer] [id number] 06/15/2024 [id number] S / / [id number] Screw Bone Locking Jovan Fem Pt 6.8x357aw T2 [id number] - [id number] Implanted:Qty : 1 on 03/04/2022 by Sanket Woodward MD at [facility] Screw Implant Right: Femur [employer] [id number] 03/15/2023 [id number] S / / [id number] Screw Locking 5 X 42.5mm - [id number] Implanted:Qty : 1 on 03/04/2022 by Sanket Woodward MD at [facility] Screw Implant Right: [employer] 11/14/2031 [id number] S / / [id number] Screw Locking 5 X 60mm - [id number] Implanted:Qty : 1 on 03/04/2022 by Sanket Woodward MD at [facility] Screw Implant Right: Femur [employer] 11/14/2031 [id number] S / / [id number] Insurance [place] Advance Directives For more information, please contact: [phone] * Full Code (Latest Code Status on File) Date Activated Date Inactivated Comments 03/04/2022 17:46 03/06/2022 19:41 Question Answer Comments When the patient has NO PULSE: Full Code / CPR Who Made the Decision? Default/Not Discussed Care Teams Black Top Machine Operator Relationship Specialty Start Date End Date Katharine Cortés APRN [address] [place] [id number] PCP - General Family Medicine - Primary Care 03/21/22
--- OUTSIDE RECORDS SUMMARY | 2024-08-07 13:37 | XMS_ITS | Encounter Summary ---
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 8:00 EDT [facility] % Immature Grans 0.4 % 03/05/20 8:00 EDT [facility] Absolute Neutrophils 6.72 2.20 - 8.85 K/cmm 03/05/2022 8:00 EDT [facility] Absolute Lymphocytes 2.46 1.09 - 3.30 K/cmm 03/05/2022 8:00 EDT [facility] Absolute Monocytes 0.98(H) 0.10 - 0.80 K/cmm 03/05/2022 8:00 EDT [facility] Absolute Eosinophils 0.02(L) 0.03 - 0.61 K/cmm 03/05/2022 8:00 EDT [facility] ABS Basophils 0.03 0.01 - 0.11 K/cmm 03/05/2022 8:00 EDT [facility] Absolute Immature Grans 0.04 0.00 - 0.06 K/cmm 03/05/2022 8:00 EDT [facility] Type of Differential: Auto 03/05/2022 8:00 T [facility] Blood VENOUS BLOOD / Unknown Venipuncture / Unknown 03/05/2022 7:10 EDT 03/05/2022 7:45 EDT us Cindy Peña MD PACKAGES & DNA PROBE ORD ERABLES Final Result [facility] [address] [place] [address] * (ABNORMAL) ELECTROLYTES (03/05/2022 7:10 EDT) Sodium 135(L) 136 - 145 mmol/L 03/05/2022 8:16 EDT [facility] Potassium 4.2 3.5 - 5.0 mmol/L 03/05/2022 8:16 EDT [facility] Chloride 103 96 - 110 mmol/L 03/05/2022 8:16 EDT [facility] CO2 Total 29 22 - 32 mmol/L 03/05/2022 8:16 EDT [facility] Anion Gap 3(L) 5 - 14 03/05/2022 8:16 EDT [facility] Blood VENOUS BLOOD / Unknown Venipuncture / Unknown 03/05/2022 7:10 EDT 03/05/2022 7:45 EDT Cindy Peña MD CHEMISTRY & BLOOD GAS OR DERABLES Final Result [facility] [address] [place] [address] * CREATININE (03/05/2022 7:10 EDT) Creatinine 0.67 0.66 - 1.25 mg/dL 03/05/2022 8:16 EDT [facility] eGFR 125 >60 mL/min/1.73 m2 03/05/2022 8:16 EDT [facility] Blood VENOUS BLOOD / Unknown Venipuncture / Unknown 03/05/2022 7:10 EDT 03/05/2022 7:45 EDT Cindy Peña MD CHEMISTRY & BLOOD GAS OR DERABLES Final Result Performing Organization Address City/[facility]/ZIP Co de Phone Number [facility] [address] [place] [address] * BUN (03/05/2022 7:10 EDT) BUN 11 10 - 26 mg/dL 03/05/2022 8:16 EDT [facility] Blood VENOUS BLOOD / Unknown Venipuncture / Unknown 03/05/2022 7:10 EDT 03/05/2022 7:45 EDT us Cindy Peña MD CHEMISTRY & BLOOD GAS OR DERABLES Final Result [facility] [address] [place] [address] * MRSA PCR (03/04/2022 18:33 EDT) MRSA/Staph aureus Result Staphylococcus aureus detected by PCR (MRSA NOT detected) 03/04/2022 22:07 EDT [facility] Swab ENTIRE NARIS / Unknown Swab / Unknown 03/04/2022 18:33 EDT 03/04/2022 19:13 EDT us Cindy Peña MD MICROBIOLOGY - GENERAL O RDERABLES Final Result [facility] [address] [place] [address] * XR FEMUR RIGHT 2 OR MORE [...] unexpected radiopaque foreignbodies are seen. us Sanket Woodward MD [facility] [place] [facility] ORDERAB LES Final Result * [...] explore management options, if applicable. 03/08/2022 15:46 T [facility] Final Diagnosis A. 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 03/08/2022 15:46 [facility] Attestation There was significant resident/fellow involvement in the diagnostic evaluation of this case. By the signature below, the attending physician certifies that they have personally conducted a gross and/or microscopic examination of the described specimens and rendered or confirmed the above diagnosis. 03/08/2022 15:46 [facility] at 1546 Clinical History Other fracture of right femur, initial encounter for closed fracture ([facility]) ([facility]) 03/08/2022 15:46 EDT [facility] Gross Description A. Received [...] unremarkable . The spermatic cord is unremarkable. Record Pressman sections are submitted as follows: BLOCK MIGUEL A1- chemical sales representative testicle including epididymal head A2- chemical sales representative spermatic cord KIMMY BARRERA DO 03/06/2022 13:48 03/08/2022 15:46 EDT [facility] Resident/Mart w: Kimmy Barrera DO 03/08/2022 15:46 EDT [facility] Performing Lab [facility] 03/08/2022 15:46 EDT [facility] Scanned Images 03/08/2022 15:46 EDT [facility] Tissue TESTIS STRUCTURE / Unknown 03/04/2022 14:45 EDT 03/05/2022 18:23 EDT us Sanket Woodward MD PATHOLOGY ORDERABLES Final Res ult [facility] [address] [place] [address] * Nerve Block (03/04/2022 9:42 EDT) Narrative [facility] EKG - 03/04/2022 9:42 EDT Rosanne [...] of procedure: ??Tolerated well, no immediate complications Rosanne Deal MD PROCEDURE/MINOR SURGICAL O RDERABLES Edited Result - Final [facility] EKG * POCT US ED GUIDANCE [...] Single Injection Block Procedure: ?Patient placed on monitoring tech: Yes ?1 % lidocaine used for local [...] ?Other confirmatory study/comments:: N/A Signed by Markus Walden [...] Single Injection Block Procedure: Patient placed on monitoring tech: Yes 1 % lidocaine used for local [...] Other confirmatory study/comments:: N/A Signed by Markus HEREDIA [...] the above interpretation andagree with the findings. Cindy Peña MD [facility] ORDERABLES Final Result * HEMOGLOBIN A1C (03/04/2022 6:22 EDT) Hemoglobin A1c 5.3 <5.7 % 03/05/2022 8:56 T [facility] Comment: Glycemic Status References: Normal: ??<5.7% Pre-Diabetes: ??5.7% - 6.4% Diagnostic of Diabetes: ??> or = 6.5% (if confirmed) Est Avg Glucose 105 mg/dL 8:56 [facility] Comment:The eAG represents t he A1c result expressed as average glucose in mg/dL. Blood VENOUS BLOOD / Unknown Venipuncture / Unknown 03/04/2022 6:22 EDT 03/04/2022 6:27 EDT us Sanket Woodward MD CHEMISTRY & BLOOD GAS ORDERABL ES Final Result Performing Organization Address City/[facility]/ZIP Co de Phone Number [facility] [address] [place] [address] * (ABNORMAL) BASIC METABOLIC PANEL (BMP) (03/04/2022 6:22 EDT) Sodium 139 136 - 145 mmol/L 03/04/2022 6:42 EDT [facility] Potassium 4.5 3.5 - 5.0 mmol/L 03/04/2022 6:42 [facility] Chloride 111(H) 96 - 110 mmol/L 03/04/2022 6:42 [facility] CO2 Total 22 22 - 32 mmol/L 03/04/2022 6:42 [facility] Anion Gap 6 5 - 14 03/04/2022 6:42 [facility] Glucose 127(H) 70 - 100 mg/dL 03/04/2022 6:42 [facility] Calcium 7.4(L) 8.5 - 10.5 mg/dL 03/04/2022 6:42 [facility] BUN 11 10 - 26 mg/dL 03/04/2022 6:42 [facility] Creatinine 0.74 0.66 - 1.25 mg/dL 03/04/2022 6:42 [facility] eGFR 121 >60 mL/min/1.73 m2 03/04/2022 6:42 [facility] Blood VENOUS BLOOD / Unknown Venipuncture / Unknown 03/04/2022 6:22 EDT 03/04/2022 6:27 EDT Kellie Jose MD CHEMISTRY & BLOOD GAS O RDERABLES Final Result [facility] [address] [place] [address] * (ABNORMAL) COMPLETE BLOOD COUNT (03/04/2022 6:22 EDT) WBC 15.47(H) 4.00 - 10.40 K/cmm 03/04/2022 6:37 EDT [facility] RBC 3.95(L) 4.36 - 5.78 M/cmm 03/04/2022 6:37 EDT [facility] Hemoglobin 12.6(L) 13.8 - 17.3 gm/dL 03/04/2022 6:37 T [facility] HCT 36.3(L) 39.5 - 50.2 % 03/04/2022 6:37 EDT [facility] MCV 92 81 - 95 fl 03/04/2022 6:37 EDT [facility] MCH 31.9 27.6 - 33.0 pg 03/04/2022 6:37 EDT [facility] MCHC 34.7 32.8 - 36.4 gm/dL 03/04/2022 6:37 T [facility] RDW-CV 14.6(H) <14.2 % 03/04/2022 6:37 T [facility] RDW-SD 49.4(H) <46.0 fl 03/04/2022 6:37 EDT [facility] PLT 142 141 - 377 K/cmm 03/04/2022 6:37 T [facility] MPV 11.0 9.5 - 12.7 fl 03/04/2022 6:37 [facility] Blood VENOUS BLOOD / Unknown Venipuncture / Unknown 03/04/2022 6:22 EDT 03/04/2022 6:27 EDT us Kellie Jose MD HEMATOLOGY & PF4 ORDERA BLES Final Result Performing Organization Address City/[facility]/ZIP Co de Phone Number [facility] [address] [place] [address] * LACTIC ACID (03/04/2022 6:22 EDT) Lactic Acid 1.6 <=2.0 mmol/L 03/04/2022 6:42 EDT [facility] Blood VENOUS BLOOD / Unknown Venipuncture / Unknown 03/04/2022 6:22 EDT 03/04/2022 6:27 EDT us Kellie Jose MD CHEMISTRY & BLOOD GAS O RDERABLES Final Result [facility] [address] [place] [address] * XR KNEE RIGHT 4 OR MORE [...] with the findings. us Cindy Peña MD [facility] [place] DI[facility]NO[facility] O RDERABLES Final Result * [...] with the findings. us Cindy Peña MD [facility] [place] [place] [facility] O RDERABLES Final Result * [...] the above interpretation andagree with the findings. Cindy ePña MD IM CT ORDERABLES Final Result * CT ANGIO [...] clear supplying vessel (venous axial image #[id number]). Supervising Law Enforcement Analyst: No additional findings. Procedure Note Royce Mccall [...] without clearsupplying vessel (venous axial image #[id number]). Supervising Law Enforcement Analyst: No additional findings. IMPRESSION 1. Sequela of [...] the above interpretation andagree with the findings. Kellie Jose MD IMG CT ORDERABLES Final Result * PREPARE RED BLOOD CELLS (03/04/2022 1:33 EDT) Product Code [id number] [facility] Donor Number [id number] [facility] BLOOD B[facility] Unit ABO A [facility] B[facility] Unit Rh POS [facility] Unit Status RE^Released From Crossmatch [facility] Product Expiration Date [id number] [facility] Unit Blood Type Code 6200 [facility] Volume [address] [facility] Coding System [id number] [facility] Blood 03/04/2022 1:33 EDT Kellie Jose MD BLOOD BANK ORDERABLES F inal Result [facility] [address] [place] [address] * TYPE AND SCREEN (03/04/2022 1:30 EDT) ABO A 03/04/2022 4:08 EDT [facility] Rh Factor Positive 03/04/2022 4:08 EDT [facility] Antibody Screen Negative 03/04/2022 4:08 EDT [facility] Comment: Please evaluate patient for clinical significance. Visible hemolysis observed in specimen. Specimen Expires: 03/07/2022 @ 23:59 03/04/2022 4:08 EDT [facility] Blood VENOUS BLOOD / Unknown Venipuncture / Unknown 03/04/2022 1:30 EDT 03/04/2022 1:38 EDT us Kellie Jose MD BLOOD BANK TESTS Edited Result - Final Performing Organization Address [facility]/ZIP Co de Phone Number [facility] [address] [place] [address] * PATIENT RE-TYPE (03/04/2022 1:30 EDT) ABO A 03/04/2022 2:13 EDT [facility] Rh Factor Positive 03/04/2022 2:13 EDT [facility] Blood VENOUS BLOOD / Unknown Venipuncture / Unknown 03/04/2022 1:30 EDT 03/04/2022 1:38 EDT us Kellie Jose MD BLOOD BANK TESTS Final Result Performing Organization Address [facility] Co de Phone Number [facility] [address] [place] [address] * (ABNORMAL) PTT (03/04/2022 1:30 EDT) PTT 23(L) 26 - 37 secs 03/04/2022 1:49 EDT [facility] Blood VENOUS BLOOD / Unknown Venipuncture / Unknown 03/04/2022 1:30 EDT 03/04/2022 1:33 EDT us Kellie Jose MD HEMATOLOGY & PF4 ORDERA BLES Final Result Performing Organization Address City/[facility]/ZIP Co de Phone Number [facility] [address] [place] [address] * PROTIME (03/04/2022 1:30 EDT) [facility] I.N.R. 1.0 0.9 - 1.1 Ratio 03/04/2022 1:49 [facility] Pro Time 11.8 10.4 - 12.6 secs 03/04/2022 1:49 [facility] Blood VENOUS BLOOD / Unknown Venipuncture / Unknown 03/04/2022 1:30 EDT 03/04/2022 1:33 EDT Narrative [facility] - 03/04/2022 1:49 EDT Moderate Intensity Coumadin INR = 2.0-3.0 Adjustments in anticoagulant therapy dose should be based on the INR and NOT on the Protime. us Kellie Jose MD HEMATOLOGY & PF4 ORDERA BLES Final Result [facility] [address] [place] [address] * (ABNORMAL) COMPLETE BLOOD COUNT AND DIFFERENTIAL (03/04/2022 1:30 EDT) [facility] WBC 28.09(H) 4.00 - 10.40 K/cmm 03/04/2022 1:41 [facility] RBC 4.01(L) 4.36 - 5.78 M/cmm 03/04/2022 1:41 [facility] Hemoglobin 12.7(L) 13.8 - 17.3 gm/dL 03/04/2022 1:41 [facility] HCT 36.3(L) 39.5 - 50.2 % 03/04/2022 1:41 [facility] MCV 91 81 - 95 fl 03/04/2022 1:41 [facility] MCH 31.7 27.6 - 33.0 pg 03/04/2022 1:41 [facility] MCHC 35.0 32.8 - 36.4 gm/dL 03/04/2022 1:41 [facility] RDW-CV 14.0 <14.2 % 03/04/2022 1:41 [facility] RDW-SD 46.5(H) <46.0 fl 03/04/2022 1:41 [facility] PLT 175 141 - 377 K/cmm 03/04/2022 1:41 [facility] MPV 11.2 9.5 - 12.7 fl 03/04/2022 1:41 [facility] % Neutrophils 87.4 % 03/04/2022 1:41 [facility] % Lymphocytes 6.4 % 03/04/2022 1:41 [facility] % Monocytes 4.9 % 03/04/2022 1:41 [facility] % Eosinophils 0.1 % 03/04/2022 1:41 [facility] % Basophils 0.5 % 03/04/2022 1:41 [facility] % Immature Grans 0.7 % 03/04/20 1:41 [facility] Absolute Neutrophils 24.56(H) 2.20 - 8.85 K/cmm 03/04/2022 1:41 [facility] Absolute Lymphocytes 1.81 1.09 - 3.30 K/cmm 03/04/2022 1:41 [facility] Absolute Monocytes 1.37(H) 0.10 - 0.80 K/cmm 03/04/2022 1:41 [facility] Absolute Eosinophils 0.03 0.03 - 0.61 K/cmm 03/04/2022 1:41 [facility] ABS Basophils 0.13(H) 0.01 - 0.11 K/cmm 03/04/2022 1:41 [facility] Absolute Immature Grans 0.19(H) 0.00 - 0.06 K/cmm 03/04/2022 1:41 [facility] Type of Differential: Auto 03/04/2022 1:41 [facility] Blood VENOUS BLOOD / Unknown Venipuncture / Unknown 03/04/2022 1:30 EDT 03/04/2022 1:33 EDT us Kellie Jose MD PACKAGES & DNA PROBE OR DERABLES Final Result Performing Organization Address [facility] Co de Phone Number [facility] [address] [place] [address] * (ABNORMAL) POCT BLOOD GAS, EG6 I-STAT (03/04/2022 1:30 EDT) pH, Venous, i-STAT 7.33 7.31 - 7.41 03/04/2022 1:33 EDT [facility] pCO2, Venous, i-STAT 42 41 - 51 mmHg 03/04/2022 1:33 EDT [facility] pO2, Venous, i-STAT 41 30 - 50 mmHg 03/04/2022 1:33 EDT [facility] TCO2, Venous, i-STAT 23 22 - 28 mmol/L 03/04/2022 1:33 EDT [facility] O2 Saturation, Venous, i-STAT 72 60 - 85 % 03/04/2022 1:33 EDT [facility] Base Excess(+) / Deficit(-), Venous, i-STAT -4(L) -2 - 3 mmol/L 03/04/2022 1:33 EDT [facility] Blood VENOUS BLOOD / Unknown 03/04/2022 1:30 EDT 03/04/2022 1:33 EDT Narrative [facility] - 03/04/2022 1:33 EDT Test Performed by Respiratory us Kellie Jose MD POINT OF CARE TEST ORDE RABLES Final Result Performing Organization Address City/[facility]/ZIP Co de Phone Number [facility] [address] [place] [address] * (ABNORMAL) LACTIC ACID (03/04/2022 1:29 EDT) Lactic Acid 3.2(HH) <=2.0 mmol/L 03/04/2022 1:53 EDT [facility] Blood VENOUS BLOOD / Unknown Venipuncture / Unknown 03/04/2022 1:29 EDT 03/04/2022 1:34 EDT us Kellie Jose MD CHEMISTRY & BLOOD GAS O RDERABLES Final Result [facility] [address] [place] [address] * (ABNORMAL) SCREENING GLUCOSE (03/04/2022 1:29 EDT) Glucose, Screening 123(H) 70 - 100 mg/dL 03/04/2022 1:47 EDT [facility] Blood VENOUS BLOOD / Unknown Venipuncture / Unknown 03/04/2022 1:29 EDT 03/04/2022 1:34 EDT us Kellie Jose MD CHEMISTRY & BLOOD GAS O RDERABLES Final Result Performing Organization Address City/[facility]/ZIP Co de Phone Number [facility] [address] [place] [address] * CREATININE (03/04/2022 1:29 EDT) Creatinine 0.75 0.66 - 1.25 mg/dL 03/04/2022 1:47 EDT [facility] eGFR 121 >60 mL/min/1.73 m2 03/04/2022 1:47 EDT [facility] Blood VENOUS BLOOD / Unknown Venipuncture / Unknown 03/04/2022 1:29 EDT 03/04/2022 1:34 EDT us Kellie Jose MD CHEMISTRY & BLOOD GAS O RDERABLES Final Result [facility] [address] [place] [address] * BUN (03/04/2022 1:29 EDT) BUN 11 10 - 26 mg/dL 03/04/2022 1:53 EDT [facility] Comment: Slight hemolysis identified, interpret with caution as results may be affected due to hemolysis. Blood VENOUS BLOOD / Unknown Venipuncture / Unknown 03/04/2022 1:29 EDT 03/04/2022 1:34 EDT Kellie Jose MD CHEMISTRY & BLOOD GAS O RDERABLES Final Result [facility] [address] [place] [address] * (ABNORMAL) ELECTROLYTES (03/04/2022 1:29 EDT) Sodium 140 136 - 145 mmol/L 03/04/2022 1:53 EDT [facility] Potassium 4.5 3.5 - 5.0 mmol/L 03/04/2022 1:53 EDT [facility] Comment:Slight hemolysis annabelle ntified, interpret with caution as hemolysis will elevate potassium result. Chloride 111(H) 96 - 110 mmol/L 03/04/2022 1:53 EDT [facility] CO2 Total 19(L) 22 - 32 mmol/L 03/04/2022 1:53 T [facility] Anion Gap 10 5 - 14 03/04/2022 1:53 EDT [facility] Blood VENOUS BLOOD / Unknown Venipuncture / Unknown 03/04/2022 1:29 EDT 03/04/2022 1:34 EDT Kellie Jose MD CHEMISTRY & BLOOD GAS O RDERABLES Final Result Performing Organization Address [facility]/ZIP Co de Phone Number [facility] [address] [place] [address] documented in this encounter Visit Diagnoses Diagnosis Other fracture of right femur, initial encounter for closed fracture ([facility])- Primary Other fracture of right femur, initial encounter for closed fracture ([facility]) Testicular injury, initial encounter History of femur fracture Personal history of traumatic fracture Other fracture of right femur, initial encounter for closed fracture ([facility]) Testicular injury, initial encounter documented in this encounter Admitting Diagnoses Diagnosis Other fracture of right femur, initial encounter for closed fracture ([facility]) History of femur fracture Personal history of traumatic fracture documented in this encounter Administered Medications Inactive Administered Medications - up to 3 most recent administrations Medication Order MAR Action Action Date Dose Rate Site acetaminophen (TYLENOL) suppository 975 mg 975 mg, rectal, EVERY 6 HOURS, First dose on Sat03/04/22 at 2000, Until Discontinued, Routine acetaminophen (TYLENOL) tablet 1,000 mg 1,000 mg, oral, EVERY 6 HOURS, First dose on Sat03/04/22 at 2000, Until Discontinued, Routine Given 03/06/2022 14:21 EDT 1,000 mg Given 03/06/2022 9:10 EDT 1,000 mg Given 03/06/2022 1:13 EDT 1,000 mg ascorbic acid (vitamin C) (VITAMIN C) tablet 500 mg 500 mg, oral, DAILY, First dose on Sat03/04/22 at 1815, Until Discontinued, Routine Given 03/06/2022 9:12 EDT 500 mg Given 03/05/2022 10:19 EDT 500 mg Given 03/04/2022 18:32 EDT 500 mg bacitracin zinc 500 unit/gram ointment topical, 2 TIMES DAILY, 14 doses, First dose on Sat03/06/22 at 2100, Last dose on Sat03/13/22 at 0900 bupivacaine (PF) (MARCAINE) 0.25 % (2.5 mg/mL) injection PRN, Starting on Sat03/04/22 at 1524, Until Sat03/04/22 at 1539, Routine, Intraprocedure Given 03/04/2022 15:24 EDT 4 mL Other cholecalciferol (Vitamin D3) tablet 2,000 Units 2,000 [...] mg Given 03/05/2022 8:04 EDT 30 mg lactated ringers (LR) infusion at 25 mL/hr, intravenous, CONTINUOUS, Starting on Sat03/04/22 at 1100, Until Sat03/06/22 at 1936, Routine, Preprocedure New Bag 03/04/2022 12:54 EDT Continued by Anesthesia 03/04/2022 11:27 EDT Restarted 03/04/2022 11:14 EDT meperidine (PF) (DEMEROL) injection 12.5 mg 12.5 [...] Routine Given 03/06/2022 14:21 EDT 10 mg polyethylene glycol 3350 (MIRALAX) [...] 03/04/22 at 2000, Until Discontinued, Routine 2017 (See Alternative - Provider: Ena Pascual RN) 0216 (See Alternative - Provider: Ena Pascual RN)0804 (See Alternative - Provider: Ilya Howard RN)1330 (See Alternative - Provider: Ilya Howard RN)2016 (See Alternative - Provider: Raegan Archuleta RN) 011 (See Alternative - Provider: Raegan Archuleta RN)0910 (See Alternative - Provider: Ilya Howard RN)142 (See Alternative - Provider: Ilya Howard RN) [...] on 03/04/22 at 1815, Until Discontinued, Routine 1831 (Given - Provider: Levi Maldonado RN) 1019 (Given - Provider: Ilya Howard, JOAQUÍN) 0912 (Given - Provider: Ilya Howard, JOAQUÍN) bacitracin zinc 500 unit/gram ointment topical, 2 TIMES DAILY, 14 doses, First dose on Sat03/06/22 at 2100, Last dose on Sat03/13/22 at 0900 ceFAZolin (ANCEF) syringe 2 g (COMPLETED) 2 g, intravenous, Administer over 5 Minutes, TELESCOPE REPAIRER TO O.R., 1 dose, First dose on Sat03/04/22 at 0700, Type of Therapy: Prophylaxis, Suspected Indication (Select all that apply): Surgical prophylaxis, ID Consult: No, Routine 101 (NOV Hold - Provider: Automatic Transfer Provider Hn - Reason: Patient off unit)1140 (Given - Provider: SAMMY Bush)1745 (NOV Unhold - Provider: Automatic Transfer Provider Hn) ceFAZolin (ANCEF) syringe 2 g 2 g, intravenous, Administer over 5 Minutes, PRE-OP ONCE, 1 dose, On Sat05/06/22 at 0800, Routine ceFAZolin in dextrose (iso-os) piggyback 2 g/100 mL (COMPLETED) 2,000 mg, intravenous, Administer over 30 Minutes, EVERY 8 HOURS, 3 doses, First dose on Sat03/04/22 at 1945, Last dose on Sat03/05/22 at 1130, Type of Therapy: Prophylaxis, Suspected Indication (Select all that apply): Surgical prophylaxis, Routine 2018 (Given - Provider: Ena Pascual, JOAQUÍN) 032 (Given - Provider: Ena Pascual, RN)1143 (Given - Provider: Ilya Howard, JOAQUÍN) cholecalciferol (Vitamin D3) tablet 2,000 Units 2,000 Units, oral, DAILY, First dose on 03/04/22 at 1815, Until Discontinued, Routine 1831 (Given - Provider: Levi Maldonado RN) 1019 (Given - Provider: Ilya Howard, JOAQUÍN) 0911 (Given - Provider: Ilya Howard, JOAQUÍN) docusate sodium (COLACE) capsule 200 mg 200 mg, oral, 2 TIMES DAILY, First dose on 03/04/22 at 2100, Until Discontinued, Routine 2016 (Given - Provider: Ena Pascual RN) 803 (Given - Provider: Ilya Howard, JOAQUÍN)2017 (Given - Provider: Raegan Archuleta, RN) 910 (Given - Provider: Ilya Howard, RN) enoxaparin (LOVENOX) injection 30 mg 30 mg, subcutaneous, EVERY 12 HOURS, First dose on Sat03/05/22 at 0900, Until Discontinued, Routine 803 (Given - Provider: Ilya Howard, RN)2017 (Given - Provider: Raegan Archuleta, JOAQUÍN) 911 (Given - Provider: Ilya Howard, JOAQUÍN) fentaNYL [...] 183 (Given - Provider: Levi Maldonado RN) 101 (Given - Provider: lIya Howard RN) 0911 (Given - Provider: Ilya Howard, JOAQUÍN) polyethylene glycol 3350 (MIRALAX) packet 17 g 17 g, oral, DAILY, First dose on 03/04/22 at 1815, Until Discontinued, Routine 175 (Not Given - Provider: Levi Maldonado RN [...] on 03/04/22 at 2100, Until Discontinued, Routine 2016 (Given - Provider: Ena Pascual RN) 08 (Given - Provider: Ilya Howard, JOAQUÍN)2016 (Given - Provider: Raegan Archuleta RN) 0912 (Given - Provider: Ilya Howard, JOAQUÍN) zinc sulfate (ZINCATE) capsule 220 mg 220 mg, oral, DAILY, First dose on 03/04/22 at 1815, Until Discontinued, Routine 1831 (Given - Provider: Levi Maldonado RN) 1019 (Given - Provider: Ilya Howard, JOAQUÍN) 0912 (Given - Provider: Ilya Howard, JOAQUÍN) Continuous [...] Until Sat03/04/22 at 1745, Routine, Recovery (only) 1545 (Rate Documented - Provider: Padmini Ryan RN)1615 (New Bag - Provider: Padmini Ryan RN) PRN Medication Order 03/04/2022 03/05/2022 03/06/2022 bisacodyL (DULCOLAX) suppository 10 mg 10 mg, [...] Ryan RN) 0216 (Given - Provider: Ena Pascual, JOAQUÍN)0805 (Given - Provider: Ilya Howard, RN)1455 (Given - Provider: Ilya Howard, RN) 0911 (Given - Provider: Ilya Howard, RN) nicotine (NICOTROL) 10 mg inhaler kit 1 Inhaler 1 Inhaler, inhalation, EVERY 2 HOURS PRN, Starting on Sat03/05/22 at 0014, Until Sat03/06/22 at 1936, Smoking Cessation, Routine 0420 (Given - Provider: Ena Pascual RN)1455 (Given - Provider: Ilya Howard, RN) nicotine inhaler (delivery device) 1 Each, inhalation, [...] Pain, Routine 1421 (Given - Provider: Ilya Howard, JOAQUÍN) oxyCODONE (ROXICODONE) immediate release tablet 5-15 mg (CANCELED) 5-15 mg, oral, EVERY 3 HOURS PRN, Starting on Sat03/04/22 at 1727, Until Sat03/06/22 at 1238, Pain, Routine 1728 (Given - Provider: Padmini Ryan, RN)2017 (Given - Provider: Ena Pascual, RN) 0216 (Given - Provider: Ena Pascual, RN)0621 (Given - Provider: Ena Pascual, RN)1018 (Given - Provider: Ilya Howard, RN)1330 (Given - Provider: Ilya Howard, RN)1813 (Given - Provider: Ilya Howard, RN) 0628 (Given - Provider: Raegan Archuleta RN)1025 (Given - Provider: Ilya Howard, RN) No Frequency Medication Order 03/04/2022 03/05/2022 03/06/2022 [...] oral, EVERY 6 HOURS PRN, Starting on 03/04/22 at 1746, Until Sat03/06/22 at 1936, Nausea, [...] 1 bacitracin zinc 500 unit/gram ointment 1 oxyCODONE (ROXICODONE) immed iate release tablet 5-10 mg 1 03/06/2022 nicotine (NICOTROL) 10 mg in haler kit 1 Inhaler 1 03/05/2022 nicotine inhaler (delivery device) 1 2021 acetaminophen (TYLENOL) suppository 975 mg 1 03/04/2022 acetaminophen (TYLENOL) tablet 1,000 mg 1 0 03/04/2022 ascorbic acid (vitamin C) (V ITAMIN C) tablet 500 mg 1 03/04/2022 atropine 0.1 mg/mL syringe 0.5 mg 1 022 bisacodyL (DULCOLAX) suppository 10 mg 1 calcium carbonate (TUMS) 200 mg calcium (500 mg) per chewable tablet tablet,chewable 2 Tablet 1 03/04/2022 ceFAZolin in dextrose (iso-o s) piggyback 2 g/100 mL 3 03/04/2022 cholecalciferol (Vitamin D3) tablet 2,000 Units 1 03/04/2022 dexAMETHasone (PF) (DECADRON ) 10 mg/mL injection 1 03/04/2022 diphenhydrAMINE (BENADRYL) i njection 12.5 mg 1 03/04/2022 docusate sodium (COLACE) capsule 200 mg 1 0 03/04/2022 enoxaparin (LOVENOX) injection 30 mg 1 02/14 fentaNYL citrate (PF) 50 mcg/mL injection 2 03/04/2022 fentaNYL citrate (PF) injection 100 mcg 1 0 03/04/2022 fentaNYL citrate (PF) injection 25-50 mcg 1 03/04/2022 fentaNYL citrate (PF) injection 50 mcg 1 HYDROmorphone (DILAUDID) tablet 2-4 mg 1 HYDROmorphone (PF) (DILAUDID ) 0.5 mg/0.5 mL syringe 0.3-0.5 mg 1 03/04/2022 iohexoL (OMNIPAQUE 350) solution 150 mL 1 0 03/04/2022 ketAMINE (KETALAR) 10 mg/mL IV injection vial 1 03/04/2022 ketAMINE in NaCl, iso-osmoti c (KETALAR) 50 mg/5 mL (10 mg/mL) IV injection 20 mg 1 03/04/2022 lactated ringers (LR) infusion 2 03/04/2022 meperidine (PF) (DEMEROL) in jection 12.5 mg 1 03/04/2022 methocarbamoL (ROBAXIN) tablet 1,000 mg 1 0 03/04/2022 midazolam (MDV) (VERSED) 1 mg/mL injection 1 03/04/2022 Multivitamins with Minerals tablet 1 Tablet 1 03/04/2022 naloxone (NARCAN) injection 0.2 mg 1 2021 ondansetron (PF) (ZOFRAN) injection 4 mg 2 03/04/2022 ondansetron (ZOFRAN-ODT) dis integrating tablet 4 mg 1 03/04/2022 oxyCODONE (ROXICODONE) immed iate release tablet 5-15 mg 1 03/04/2022 polyethylene glycol 3350 (OH RALAX) packet 17 g 1 03/04/2022 povidone-iodine solution 5% (Skin and Nasal Antiseptic) 1 Kit 1 03/04/2022 ropivacaine (PF) (NAROPIN) 5 mg/mL (0.5 %) injection 1 03/04/2022 senna (SENOKOT) tablet 2 Tablet 1 zinc sulfate (ZINCATE) capsule 220 mg 1 Diet Count Last Ordered Date First Orde [...] 03/04/2022 documented in this encounter Care Teams Rotating Equipment Engineer Relationship Specialty Start Date End Date None, Provider PCP - General 03/04/22 03/20/22 documented as of this encounter
--- OUTSIDE RECORDS SUMMARY | 2024-08-07 13:37 | XMS_ITS | Encounter Summary ---
Author Organization [facility] Address [address] [place] [address] Care Team Providers Care Nonprofit Fundraiser Name Role Phone None, Provider Primary Care Provider Unavailabl e Encounter Details Date Type Department Care Team (Latest Contact Info) Description 03/04/2022 Travel Social History Tobacco Use Types Packs/Day Years [...] on filedocumented in this encounter Care Teams Nonprofit Fundraiser Relationship Specialty Start Date End Date None, Provider PCP - General 03/04/22 03/20/22 documented as of this encounter
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
[2024-08-07 13:40] VITALS: BP 128/81; PULSE 80; RESP 20; O2SAT 98
[2024-08-07] MEDS: Rivaroxaban 10 MG TABLET PO (13:48)
== END 2024-08-07 13:54 | disposition home or self-care (01) ==
PROVIDERS: Emergency Provider Student in an Organized Health Care Education/Training Program; PCP Nurse Practitioner Family
DX: M79.662 Pain in left lower leg (principal); I82.812 Embolism and thrombosis of superficial veins of left lower extremity; I10 Essential (primary) hypertension
CPT/HCPCS: 99284; 93971

== ENCOUNTER 2024-09-25 00:41 | Outpatient (CLI) | payer MEDICAID, SELFPAY ==
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
--- OUTSIDE RECORDS SUMMARY | 2024-09-25 00:43 | XMS_ITS | Data Portability ---
Author Organization [place] [facility], [facility] Address [address] [place] [address] Assessment Encounter Date Assessment Date Assessment LastModified by Organization Details LastModified Time 07/08/2024 07/08/2024 Telemedicine Information: This telmed (audio + visual) appointment provided a MAT prescription. Time Start: 5; Time End:1535 Provider Location: home; [facility] [place] [place] Telemedicine Consent Given (verbal): Y 39 year old male with a history of AUD, Stimulant abuse, and receiving MOUD [place] [employer], Established care at [facility] 04/16/2024. He is presenting today bi-weekly MOUD visit Current prescription is: Suboxone 20mg films Patient denies any S/E, cravings, or withdrawal sx at current dose Update Since Last Visit : (narrative note): Jigar presenting today expressing frustration alcohol sensor remains in place and PO declines considering removal until meeting with [place] Board early next month. (see AUD hx below) Patient Denies all illicit drug use since last visit MOUD Update: B/NB levels wnl. Daily dosing last two weeks, finding schedule to work well for him. No concerns with dose, denies cravings. HUGO Hx: OUD: Last illicit opi use, 2019, primarily oxycodone IN/IH. x1-2 use of heroin [id number] Denies IVDU Hx of AUD: Denies use since 2021. All UDS through [facility], neg for ethanol. Pt endorses desire for a few beers every now and then after work. Reports last consuming x3 non-alcoholic beers x2 wk ago resulting in positive reading on alcohol sensor device. Requesting letter from [employer] indicating the program does not have an issue with him consuming alcohol. Nicotine Use: Following x2 years of abstinence, resumed smoking 10-12 cig/day x2 days since release. Declines NRT. MEDICAL : -- PCP Name: [facility], new pt appt scheduled for later this month. 06/10/2024 - Initial appt --BW: 03/2024 completed in DOC> Pt aware inf disease testing was not completed. LFT wnl. PSYCHO SOCIAL : -- Housing Stability/Safety: Stable, living in appt at place of work. -- Family: 2 sons 14, 17. No visitation. -- Employment: [employer], 40+ hr/wk. -- Legal: [place] --Counseling: Through [facility] 05/2024, Completed IDRP. 18 out of the 20 hours of required counseling completed. Plans to complete all requirements in order to have an active license. Alcohol Sensor in place until [place] Board meeting 07/2024 LAB RESULTS Last UDS result (qualitative screen): 06/23/2024OS buprenorphine and NO illicit drugs Neg ethanol, Neg THC Last confirmatory test result (LCMS/quantitativ e): N/A due to negative UDS Last Bup confirmation was performed on 06/09/2024 with the result: Bup: 152 ng/ml & Norbup: 274 ng/ml Last LFT result: WNL ASSESSMENT The patient's current phase of OUD treatment is: Stable maintenance. Interpretation of last buprenorphine confirmation test result: No concern Medication dose: No report of severe or persistent cravings/withdraw al symptoms. Pt will remain at current dose PLAN (narrative, if applicable): Given UDS neg for illicit substances, levels consistent with Rx'd suboxone dose and protective factors (employment, legal implications of use), reasonable to continue biweekly visit frequency. Encouraged to continue visits. Will discuss with Director, pt request for letter to PO regarding etoh use. Pt perseverating on topic does raise some concern, although may be reasonable to provide documentation to P&P UDS results -including ethanol testing. Jean-Claude dep: precontemplative, revisit next month Inf disease testing, additional BW urged to be completed Rx : Continue Suboxone 20mg films daily Rx Quantity 14d Rx provided today. VISIT FREQUENCY Continue biweekly visits and UDS. Treatment plan review or change includes continue current level of care uds, routine screen, repeat B/NB quant in effort to monitor for Rx suboxone diversion. LFTS will be repeated per our clinical protocol. Prescription monitoring program is reviewed. If applicable, I have identified agents prescribed to the patient in addition to any issued by our program. The patient has been counseled regarding any risk of combining sedating agents. Not available 07/20/2024 20:04:55 07/22/2024 07/22/2024 Telemedicine Information: This telmed (audio + visual) appointment provided a MAT prescription. Time Start: 1345; Time End:1400 Provider Location: home; [facility] [place] [place] Telemedicine Consent Given (verbal): Y 39 year old male with a history of AUD, Stimulant abuse, and receiving MOUD in [employer], Established care at [facility] 04/16/2024. He is presenting today bi-weekly MOUD visit Current prescription is: Suboxone 20mg films Patient denies any S/E, cravings, or withdrawal sx at current dose Update Since Last Visit : (narrative note): Jigar presenting today with euthymic mood. Anxious to have alcohol sensor removed -scheduled to discuss with [place] Board. Patient Denies all illicit drug use since last visit MOUD Update: B/NB levels wnl. No concerns with dose, denies cravings. HUGO Hx: OUD: Last illicit opi use, 2019, primarily oxycodone IN/IH. x1-2 use of heroin 1523-4197 Denies IVDU Hx of AUD: Denies use since 2021. All UDS through [facility], neg for ethanol. Pt endorses desire for a few (NA) beers every now and then after work. Nicotine Use: Following x2 years of abstinence, resumed smoking 10-12 cig/day x2 days since release. Declines NRT. MEDICAL : -- PCP Name: [facility], new pt appt scheduled for later this month. 06/10/2024 - Initial appt --BW: 03/2024 completed in DOC> Pt aware inf disease testing was not completed. LFT wnl. PSYCHO SOCIAL : -- Housing Stability/Safety: Stable, living in appt at place of work. -- Family: 2 sons 14, 17. No visitation. -- Employment: [employer], 40+ hr/wk. -- Legal: [place] --Counseling: Through [facility] 05/2024, Completed IDRP. 18 out of the 20 hours of required counseling completed. Plans to complete all requirements in order to have an active license. Alcohol Sensor in place until [place] Board meeting 08/12/2024 LAB RESULTS Last UDS result (qualitative screen): 07/08/2024OS buprenorphine and NO illicit drugs Neg ethanol, Neg THC Last confirmatory test result (LCMS/quantitativ e): N/A due to negative UDS Last Bup confirmation was performed on 06/09/2024 with the result: Bup: 152 ng/ml & Norbup: 274 ng/ml Last LFT result: WNL ASSESSMENT The patient's current phase of OUD treatment is: Stable maintenance. Interpretation of last buprenorphine confirmation test result: No concern Medication dose: No report of severe or persistent cravings/withdraw al symptoms. Pt will remain at current dose PLAN (narrative, if applicable): Given UDS neg for illicit substances, levels consistent with Rx'd suboxone dose and protective factors (employment, legal implications of use), reasonable to continue biweekly visit frequency. Consider adv to triweekly at time of next visit. Jean-Claude dep: precontemplative, revisit next month Inf disease testing, additional BW urged to be completed Rx : Continue Suboxone 20mg films daily Rx Quantity 14d Rx provided today. VISIT FREQUENCY Continue biweekly visits and UDS. Treatment plan review or change includes continue current level of care uds, routine screen, repeat B/NB quant in effort to monitor for Rx suboxone diversion. LFTS will be repeated per our clinical protocol. Prescription monitoring program is reviewed. If applicable, I have identified agents prescribed to the patient in addition to any issued by our program. The patient has been counseled regarding any risk of combining sedating agents. Not available 07/22/2024 16:49:34 08/05/2024 08/05/2024 Telemedicine Information: This telmed (audio + visual) appointment provided a MAT prescription. Time Start: 1400; Time End:1415 Provider Location: home; [facility] [place] [place] Telemedicine Consent Given (verbal): Y 39 year old male with a history of AUD, Stimulant abuse, and receiving MOUD [place] [employer], Established care at [facility] 04/16/2024. He is presenting today bi-weekly MOUD visit Current prescription is: Suboxone 20mg films Patient denies any S/E, cravings, or withdrawal sx at current dose Update Since Last Visit : (narrative note): Jigar presenting today with euthymic mood. Expresses anxiety for upcoming [place] Board meeting tomorrow and request to have alcohol sensor removed. Patient Denies all illicit drug use since last visit MOUD Update: B/NB levels wnl. No concerns with dose, denies cravings. HUGO Hx: OUD: Last illicit opi use, 2019, primarily oxycodone IN/IH. x1-2 use of heroin 6730-5867 Denies IVDU Hx of AUD: Denies use since 2021. All UDS through [facility], neg for ethanol. Pt endorses desire for a few (NA) beers every now and then after work. Nicotine Use: Following x2 years of abstinence, resumed smoking 10-12 cig/day x2 days since release. Declines NRT. MEDICAL : -- PCP Name: [facility] --BW: 03/2024 completed in DOC> Pt aware inf disease testing was not completed. LFT wnl. PSYCHO SOCIAL : -- Housing Stability/Safety: Stable, living in appt at place of work. -- Family: 2 sons 14, 17. No visitation. -- Employment: [employer], 40+ hr/wk. -- Legal: [place] --Counseling: Through [facility] 05/2024, Completed IDRP. 18 out of the 20 hours of required counseling completed. Plans to complete all requirements in order to have an active license. Alcohol Sensor in place until [place] Board meeting 08/12/2024 LAB RESULTS Last UDS result (qualitative screen): 4POS buprenorphine and NO illicit drugs Neg ethanol, Neg THC Last confirmatory test result (LCMS/quantitativ e): N/A due to negative UDS Last Bup confirmation was performed on 07/22/2024 with the result: Bup: 102 ng/ml & Norbup: 424 ng/ml Last LFT result: WNL ASSESSMENT The patient's current phase of OUD treatment is: Stable maintenance. Interpretation of last buprenorphine confirmation test result: No concern Medication dose: No report of severe or persistent cravings/withdraw al symptoms. Pt will remain at current dose PLAN (narrative, if applicable): Agrees to present at [facility] for next visit + uds. Considering transferring care to [facility] -this provider agrees to outreach pcp to inquire if transfer if possible. Pt [id number]+ minutes one way from [facility] and w/o active license, Jean-Claude dep: precontemplative, revisit next month Inf disease testing, additional BW urged to be completed Rx : Continue Suboxone 20mg films daily Rx Quantity 14d Rx provided today. VISIT FREQUENCY Continue biweekly visits and UDS. Treatment plan review or change includes LFTS will be repeated per our clinical protocol. Prescription monitoring program is reviewed. If applicable, I have identified agents prescribed to the patient in addition to any issued by our program. The patient has been counseled regarding any risk of combining sedating agents. Not available 08/05/2024 22:14:54 08/26/2024 08/26/2024 Telemedicine Information: This telmed (audio + visual) appointment provided a MAT prescription. Time Start: 1605; Time End:1625 Provider Location: home; Patient Location: home Telemedicine Consent Given (verbal): Y 39 year old male with a history of AUD, Stimulant abuse, and receiving MOUD [place] [employer], Established care at [facility] 04/16/2024. He is presenting today bi-weekly MOUD visit Current prescription is: Suboxone 20mg filmssee below Patient denies any S/E, cravings, or withdrawal sx at current dose Update Since Last Visit : (narrative note): Due to [facility] site closure and pt communicating possible hesitation to con't tx, w/ reported plan to self taper - there has been a lapse in tx. Jigar presenting today remote format. Did not show for in person appt last week. Identifies site closure to have expedited his group home goal to taper off of suboxone. Patient Denies all illicit drug use since last visit MOUD Update: Over the last 4-5 wk, reportedly self tapering on suboxone dose. Dosing w/ 6-8mg every other day Remaining FS: #10 12 mg FS #8 8 mg FS Endorses mild chills, difficulty sleeping and myalgias. Last Rx 08/12, #14 day. In reviewing pt stated goal and in effort to best support his plan, reviewed recommendation he consider at least one final in person appt, with uds to consider a final Rx for 2 mg fs to continue and complete taper. Pt open to this plan, however notes difficulty finding time for visit given he is now working one hour away in [place], [place]. B/NB levels wnl. No concerns with dose, denies cravings. HUGO Hx: OUD: Last illicit opi use, 2019, primarily oxycodone IN/IH. x1-2 use of heroin 6843-8562 Denies IVDU Hx of AUD: Denies use since 2021. All UDS through [employer] [facility], neg for ethanol. Pt endorses desire for a few (NA) beers every now and then after work. Nicotine Use: Following x2 years of abstinence, resumed smoking 10-12 cig/day x2 days since release. Declines NRT. MEDICAL : -- PCP Name: [facility] --BW: 03/2024 completed in DOC> Pt aware inf disease testing was not completed. LFT wnl. --Currently being tx for dvt. PSYCHO SOCIAL : -- Housing Stability/Safety: Stable, living in appt at place of work. -- Family: 2 sons 14, 17. No visitation. 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 -- Legal: [place] --Counseling: Through [facility] 05/2024, Completed IDRP. 18 out of the 20 hours of required counseling completed. Plans to complete all requirements in order to have an active license. Alcohol Sensor in place LAB RESULTS Last UDS result (qualitative screen): 4POS buprenorphine and NO illicit drugs Neg ethanol, Neg THC Last confirmatory test result (LCMS/quantitativ e): N/A due to negative UDS Last Bup confirmation was performed on 07/22/2024 with the result: Bup: 102 ng/ml & Norbup: 424 ng/ml Last LFT result: WNL ASSESSMENT The patient's current phase of OUD treatment is: Stable maintenance. Interpretation of last buprenorphine confirmation test result: No concern Medication dose: Pt's dose will be changed at today's visit (see above for details) PLAN (narrative, if applicable): Agrees to present at [facility] for next visit + uds 09/22/24 Recommend pt taper at 1-2 mg every 1-2 wk as tolerated. Hold on taper if struggling and consider sooner f/u visit. No Rx due today. Jean-Claude dep: precontemplative, revisit next month Inf disease testing, additional BW urged to be completed Rx : Decrease Suboxone 6-8mg films daily Rx Quantity No Rx provided today. VISIT FREQUENCY Continue biweekly visits with monthly UDS. Treatment plan review or change includes LFTS will be repeated per our clinical protocol. Prescription monitoring program is reviewed. If applicable, I have identified agents prescribed to the patient in addition to any issued by our program. The patient has been counseled regarding any risk of combining sedating agents. Not available 08/29/2024 10:16:01 09/22/2024 09/22/2024 Telemedicine Information: This telmed (audio + visual) appointment provided a MAT prescription. Time Start: 1530; Time End:1545 Provider Location: home; Patient Location: office [place], [place] Telemedicine Consent Given (verbal): Y 39 year old male with a history of AUD, Stimulant abuse, and receiving MOUD [place] [employer], Established care at [facility] 04/16/2024. He is presenting today bi-weekly MOUD visit. Current prescription is: Suboxone 20mg filmssee below Patient denies any S/E, cravings, or withdrawal sx at current dose Pertinent Tx Hx: 07/2024: Pt initially declined transferring his care from the [facility] to other [facility] location, stating to staff, he was self tapering. After further outreach, pt agreed to meet with this provider last month via remote doxy format. Pt indicated he had self tapered from 20 mg to 6-8 mg daily. Had remaining FS, through the month. Agreed to present the following mth in [place] as recommended, to avoid w/d sxs-interfering with daily life. Update Since Last Visit : (narrative note): Jigar presenting in person today at the [facility]. 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 Notes plan to discuss with employer, reducing hours to 40/wk as he is feeling overly tired and drained. Patient Denies all illicit drug use since last visit MOUD Update: Over the last month, has tapered dose to 4-6 mg daily. No remaining FS. Endorses extreme fatigue and often feeling very cold/chills -which is compounded by working outside in freezing temps. Open to recommendation we proceed with formal dose reduction today -aligned with his current dose of 6 mg. Sending 2 mg FS +4 mg FS which will allow pt the option to self taper by an additional 2 mg over the next month. HUGO Hx: OUD: Last illicit opi use, 2019, primarily oxycodone IN/IH. x1-2 use of heroin 5123-8783 Denies IVDU Hx of AUD: Denies use since 2021. All UDS through [employer] [facility], neg for ethanol. Pt endorses desire for a few (NA) beers every now and then after work. Alcohol monitor removed today after in place for the last 5 mth. Nicotine Use: Following x2 years of abstinence, resumed smoking 10-12 cig/day x2 days since release. Declines NRT. MEDICAL : -- PCP Name: [facility] --BW: 03/2024 completed in DOC> Pt aware inf disease testing was not completed. LFT wnl. --Currently being tx for dvt. PSYCHO SOCIAL : -- Housing Stability/Safety: Stable, living in appt at place of work. -- Family: 2 sons 14, 17. No visitation. 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 -- Legal: [place] --Counseling: Through [facility] 05/2024, Completed IDRP. 18 out of the 20 hours of required counseling completed. Plans to complete all requirements in order to have an active license. Alcohol Sensor in place LAB RESULTS Last UDS result (qualitative screen): 4POS buprenorphine and NO illicit drugs Neg ethanol, Neg THC Last confirmatory test result (LCMS/quantitativ e): N/A due to negative UDS Last Bup confirmation was performed on 07/22/2024 with the result: Bup: 102 ng/ml & Norbup: 424 ng/ml Last LFT result: WNL ASSESSMENT The patient's current phase of OUD treatment is: Stable maintenance. Interpretation of last buprenorphine confirmation test result: No concern Medication dose: Pt's dose will be changed at today's visit (see above for details) PLAN (narrative, if applicable): Jean-Claude dep: precontemplative, revisit next month Inf disease testing, additional BW urged to be completed MOUD: Reduce dose to reflect current TDD 6 mg daily. Pt has option of self tapering an additional 2 mg this month. Declines biweekly remote f/u, however agrees to reach out if struggling. Rx : Decrease Suboxone 6mg films daily Rx Quantity 28d Rx provided today. VISIT FREQUENCY Advance to monthly visits with monthly UDS. UDS: routine screen +b/nb in effort to monitor for diversion. LFTS will be repeated per our clinical protocol. Prescription monitoring program is reviewed. If applicable, I have identified agents prescribed to the patient in addition to any issued by our program. The patient has been counseled regarding any risk of combining sedating agents. Not available 09/22/2024 18:36:55 Plan of Treatment Reminders Order Date Submit Date Provider Last Modified By Organization Details Last Modified Time Details Appointments MAT - Monthly 15 2024 03:30P Kang Hendricks NP Not available Not available Not available Lab drug screen, urine 2023 [facility], [address] [place], [id number], 07/10/2024 13:14:14 cannabino ids, QL, screen, urine 2023 [facility], [address] [place], [id number], 07/10/2024 13:14:15 ethanol, QL, screen, [facility] [address] [place], [id number], 07/10/2024 13:14:16 additiona l order codes 2023 [facility], [address] [place], [id number], 07/08/2024 15:32:59 additiona l order codes 2023 [facility], [address] [place], [id number], 07/08/2024 15:32:54 [facility]a l order codes [facility] [address] [place], [id number], 07/08/2024 15:33:03 additiona l order codes [facility]23 [facility] [address] [place], [id number], 07/08/2024 15:33:04 additiona l order codes 2023 [facility], [address] [place], [id number], 07/08/2024 15:33:00 additiona l order codes 2023 [facility], [address] [place], [address], 07/08/2024 15:33:02 additiona l order codes 2023 024 [facility], [address] [place], [id number], 07/08/2024 15:32:55 drug screen, urine 2023 [facility], [address] [place], [id number], 07/23/2024 14:34:26 ethanol, QL, screen, urine 2023 024 [facility] [address] [place], [address], 07/23/2024 14:34:25 additiona l order codes 2023 [facility] [address] [place], [id number], 07/22/2024 14:09:34 additiona l order codes 2023 [facility] [address] [place], [id number], 07/22/2024 14:09:39 additiona l order codes 2023 024 [facility], [address] [place], [address], 07/22/2024 14:09:38 additiona l order codes 2023 024 [facility], [address] [place], [address], 07/22/2024 14:09:36 additiona l order codes 2023 024 [facility], [address] [place], [id number], 07/22/2024 14:09:39 additiona l order codes 2023 024 [facility], [address] [place], [id number], 07/22/2024 14:09:36 additiona l order codes 2023 024 [facility], [address] [place], [address], 07/22/2024 14:09:33 buprenorp elizabeth, quantitat rodolfo, urine 2023 024 [facility], [address] [place], [id number], 07/27/2024 08:33:11 drug screen, urine 2024 025 [facility], [address] [place], [address], 09/24/2024 13:58:47 cannabino ids, QL, screen, urine 2024 025 [facility], [address] [place], [id number], 09/24/2024 13:58:46 ethanol, QL, screen, urine 2024 025 [facility], [address] [place], [address], 09/24/2024 13:58:49 additiona l order codes 2024 025 [facility], [address] [place], [address], 09/22/2024 15:47:17 additiona l order codes 2024 025 [facility], [address] [place], [address], 09/22/2024 15:47:19 additiona l order codes 2024 025 [facility], [address] [place], [address], 09/22/2024 15:47:14 additiona l order codes 2024 025 [facility] [address] [place], [address], 09/22/2024 15:47:24 additiona l order codes 2024 025 [facility], [address] [place], [address], 09/22/2024 15:47:20 additiona l order codes 2024 025 [facility] [address] [place], [address], 09/22/2024 15:47:15 additiona l order codes 2024 025 [facility], [address] [place], [id number], 09/22/2024 15:47:23 buprenorp elizabeth, quantitat rodolfo, urine 2024 025 [facility], [address] [place], [address], 09/22/2024 18:36:58 Referral None recorded. Procedures None recorded. Surgeries None recorded. Imaging None recorded. Medication Orders Suboxone 12 mg-3 mg sublingua l film 2023 [id number], [address] [place] [address], [id number], 07/08/2024 15:32:56 Suboxone 8 mg-2 mg sublingua l film 2023 [facility], [address] [place] [address], [id number], 07/08/2024 15:32:56 Suboxone 12 mg-3 mg sublingua l film 2023 [facility], [address] [place] [address], [id number], 07/22/2024 14:09:37 Suboxone 8 mg-2 mg sublingua l film 2023 [facility], [address] [place] [address], [id number], 07/22/2024 14:09:35 Suboxone 12 mg-3 mg sublingua l film 2023 024 [facility], [address] [place] [address], [id number], 08/05/2024 14:20:22 Suboxone 8 mg-2 mg sublingua l film 2023 024 [facility], [address] [place] [address], [id number], 08/05/2024 14:20:22 Suboxone 4 mg-1 mg sublingua l film 2024 025 [facility], [address] [place] [address], [id number], 09/22/2024 15:47:15 Suboxone 2 mg-0.5 mg sublingua l film 2024 025 [facility], [address] [place], [address], 09/22/2024 15:47:15 Patient TargetsNo targets recorded. Patient InstructionsNo instructions recorded. Reason for Referral None Reported. Results Created Date Observation Date Name Description Value Unit Range Abnormal Flag Note LastModifiedBy Organization Detail LastModifiedTime 06/09/2006/10/2024 BUPRE NORPH INE PT UDS, QL, U cocaine metabolite NEG NG/mL <300 normal Not Available [facility] [address] [place], [address], 06/10/2024 13:57:19 06/09/20 24 06/10/2024 BUPRE NORPH INE PT UDS, QL, U amphetamines NEG NG/mL <500 normal Not Available [facility] [address] [place], [address], 06/10/2024 13:57:19 06/09/20 24 06/10/2024 BUPRE NORPH INE PT UDS, QL, U benzodiazepi yasmine NEG NG/mL <200 normal Not Available [facility] [address] [place], [address], 06/10/2024 13:57:19 06/09/20 24 06/10/2024 BUPRE NORPH INE PT UDS, QL, U buprenorphin e POS NG/mL <5 normal Not Available [facility] [address]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 MAT visit. They are being treated for OUD with buprenorphine. PLEASE SEE A & P SECTION FOR FULL VISIT NOTE Joanna Hendricks NP [address] [place], [address], [facility] [employer] [facility] 08/05/2024 22:15:20 08/26/2024 text/html This patient is here today for their follow-up MAT visit. They are being treated for OUD with buprenorphine. PLEASE SEE A & P SECTION FOR FULL VISIT NOTE Joanna Hendricks NP [address] [place], [address], [facility] [employer] 08/29/2024 10:16:11 09/22/2024 text/html This patient is here today for their follow-up MAT visit. They are being treated for OUD with buprenorphine. PLEASE SEE A & P SECTION FOR FULL VISIT NOTE Joanna Hendricks NP [address] [place], [address], [facility] [employer] 09/22/2024 18:37:16
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
--- OUTSIDE RECORDS SUMMARY | 2024-09-25 00:44 | XMS_ITS | Encounter Summary ---
Author Organization [facility] Address [address] [place] [address] Care Team Providers Care Sand Filler Name Role Phone Katharine Cortés ALYSIA Primary Care Provider [phone] Encounter Details Date Type Department Care Team (Late st Contact Info) Description 04/02/2022 Orders Only [facility] Orthopedic Trauma - [address] [address] Israel Hopkins MD [address] [place] [address] Closed fracture of shaft of [...] documented in this encounter Care Teams Sand Filler Relationship Specialty Start Date End Date Katharine Cortés APRN [address] [place] [phone] PCP - General Family Medicine - Primary Care 03/21/22 documented as of this encounter
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
--- OUTSIDE RECORDS SUMMARY | 2024-09-25 00:44 | XMS_ITS | Referral Summary ---
Author Organization [facility] Address [address] [place] [address] Care Team Providers Care President Educational Institution Name Role Phone Katharine Cortés Alem HATFIELD Primary Care Provider [phone] Allergies No known active allergies Medications polyethylene [...] femu r, initial encounter for closed fracture ([facility]) 03/04/2022 Overview (03/04/2022): Added automatically from request for surgery [id number] History of femur fracture 03/04/2022 Immunizations Name [...] on file Medical Devices Implanted Type Area Core Extruder Device Identifier Shelf Expiration Date Model / Serial / Lot Nail Femoral Gt Right 11 X 400mm - [id number] Implanted:Qty : 1 on 03/04/2022 by Sanket Woodward MD at [facility] Nail Right: Femur [employer] [id number] 07/16/2029 8873-6396 S / / [id number] Screw Bone Locking Jovan Fem Pt 6.8l625ve T2 [id number] - [id number] Implanted:Qty : 1 on 03/04/2022 by Sanket Woodward MD at [facility] Screw Implant Right: Femur [employer] [id number] 06/15/2024 6699-9544 S / / [id number] Screw Bone Locking Jovan Fem Pt 6.1c884oy T2 [id number] - [id number] Implanted:Qty : 1 on 03/04/2022 by Sanket Woodward MD at [facility] Screw Implant Right: Femur [employer] [id number] 03/15/2023 8558-8443 S / / [id number] Screw Locking 5 X 42.5mm - [id number] Implanted:Qty : 1 on 03/04/2022 by Sanket Woodward MD at [facility] Screw Implant Right: Femur [employer] 11/14/2031 6372-7047 S / / [id number] Screw Locking 5 X 60mm - [id number] Implanted:Qty : 1 on 03/04/2022 by Sanket Woodward MD at [facility] Screw Implant Right: Femur [employer] 11/14/2031 0155-2031 S / / [id number] Insurance [place] Advance Directives For more information, please contact: [phone] * Full Code (Latest Code Status on File) Date Activated Date Inactivated Comments 03/04/2022 17:46 03/06/2022 19:41 Question Answer Comments When the patient has NO PULSE: Full Code / CPR Who Made the Decision? Default/Not Discussed Care Teams President Educational Institution Relationship Specialty Start Date End Date Katharine Cortés APRN [address] [place] [address] PCP - General Family Medicine - Primary Care 03/21/22
--- OUTSIDE RECORDS SUMMARY | 2024-09-25 00:44 | XMS_ITS | Encounter Summary ---
Author Organization [facility] Address [address] [place] [address] Care Team Providers Care Corporate Planner Name Role Phone None, Provider Primary Care Provider Unavailabl e Reason for Visit * Reason Onset Date Comments Other 03/13/2022 Encounter Details Date Type Department Care Team (Late st Contact Info) Description 03/13/2022 Telephone [facility] Sports Medicine Program - [address] [place] [address] Dayanara Carrera RN [address] [place] [address] Other Social History Tobacco Use Types Packs/Day [...] x3 on the thigh intact with dressing. [facility] health out of [facility] seeing him (PT and nurse) Offered [...] clinic tomorrow 03/14/22 @9:45- appointment made Called [facility] to check in and see when they [...] on filedocumented in this encounter Care Teams Corporate Planner Relationship Specialty Start Date End Date None, Provider PCP - General 03/04/22 03/20/22 documented as of this encounter
--- OUTSIDE RECORDS SUMMARY | 2024-09-25 00:44 | XMS_ITS | Encounter Summary ---
Author Organization [facility] Address [address] [place] [address] Care Team Providers Care Petrophysicist Name Role Phone None, Provider Primary Care Provider Unavailabl e Reason for Visit * Reason Onset Date Comments Other 03/14/2022 Encounter Details Date Type Department Care Team (Late st Contact Info) Description 03/14/2022 Telephone [facility] Sports Medicine Program - [address] [place] [address] Dayanara Carrera RN [address] [place] [address] Other Social History Tobacco Use Types Packs/Day [...] on filedocumented in this encounter Care Teams Petrophysicist Relationship Specialty Start Date End Date None, Provider PCP - General 03/04/22 03/20/22 documented as of this encounter
--- OUTSIDE RECORDS SUMMARY | 2024-09-25 00:44 | XMS_ITS | Encounter Summary ---
Author Organization [facility] Address [address] [place] [address] Care Team Providers Care Steel Barrel Reamer Name Role Phone Katharine Cortés ALYSIA Primary Care Provider [phone] Reason for Visit * Reason Onset Date Comments Appointment Related 03/21/2022 Encounter Details Date Type Department Care Team (Late st Contact Info) Description 03/21/2022 Telephone [facility] Urology - [address] [address] Hannah Waggoner MD [address] [place] [address], [address] [place] [phone] Appointment Related Social History Tobacco Use Types [...] to nursing. * Telephone Encounter - Nohemi Wloff - 03/21/2022 1145 EDT Patient unable to make the u/s today and needs to reschedule both appointments. Videotape Recording Engineer transferred to master scheduler. documented in this encounter Plan of Treatment Not on file documented as of this encounter Visit Diagnoses Not on filedocumented in this encounter Care Teams Steel Barrel Reamer Relationship Specialty Start Date End Date Katharine Cortés APRN [address] [place] [address] PCP - General Family Medicine - Primary Care 03/21/22 documented as of this encounter
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
--- OUTSIDE RECORDS SUMMARY | 2024-09-25 00:44 | XMS_ITS | Encounter Summary ---
Author Organization [facility] Address [address] [place] [address] Care Team Providers Care Loader Engineer Name Role Phone Katharine Cortés ALYSIA Primary Care Provider [phone] Reason for Visit * Reason Comments Fracture Follow-up Encounter Details Date Type Department Care Team (Late st Contact Info) Description 04/13/2022 11:30 EDT Office Visit [facility] Orthopedic Trauma - [address] [address] Israel Hopkins MD [address] [place] [address] History of femur fracture (Primary Dx) [...] fracture documented in this encounter Care Teams Loader Engineer Relationship Specialty Start Date End Date Katharine Cortés APRN [address] [place] [phone] PCP - General Family Medicine - Primary Care 03/21/22 documented as of this encounter
--- OUTSIDE RECORDS SUMMARY | 2024-09-25 00:44 | XMS_ITS | Clinical Summary ---
Author Organization [facility] Address [address] [place] [address] Care Team Providers Care Cushion Installer Name Role Phone Katharine Cortés Alem HATFIELD Primary Care Provider [phone] Allergies No known active allergies Medications polyethylene [...] r, initial encounter for closed fracture ([facility]) 03/04/2022 Overview (03/04/2022): Added automatically from request for surgery [id number] History of femur fracture 03/04/2022 Immunizations Name [...] 05/17/202408/2021, 12/29/2020 Medical Devices Implanted Type Area Entertainment & Media Correspondent Device Identifier Shelf Expiration Date Model / Serial / Lot Nail Femoral Gt Right 11 X 400mm - [id number] Implanted:Qty : 1 on 03/04/2022 by Sanket Woodward MD at [facility] Nail Right: Femur [employer] [id number] 07/16/2029 0810-9614 S / / [id number] Screw Bone Locking Jovan Fem Pt 6.5y397rq T2 [id number] - [id number] Implanted:Qty : 1 on 03/04/2022 by Sanket Woodward MD at [facility] Screw Implant Right: Femur [employer] [id number] 06/15/2024 3210-2706 S / / [id number] Screw Bone Locking Jovan Fem Pt 6.2h212cy T2 [id number] - [id number] Implanted:Qty : 1 on 03/04/2022 by Sanket Woodward MD at [facility] Screw Implant Right: Femur [employer] [id number] 03/15/2023 6433-2965 S / / [id number] Screw Locking 5 X 42.5mm - [id number] Implanted:Qty : 1 on 03/04/2022 by Sanket Woodward MD at [facility] Screw Implant Right: Femur [employer] 11/14/2031 0370-9959 S / / [id number] Screw Locking 5 X 60mm - [id number] Implanted:Qty : 1 on 03/04/2022 by Sanket Woodward MD at [facility] Screw Implant Right: Femur [employer] 11/14/2031 8776-1553 S / / [id number] Insurance [place] Advance Directives For more information, please contact: [phone] * Full Code (Latest Code Status on File) Date Activated Date Inactivated Comments 03/04/2022 17:46 03/06/2022 19:41 Question Answer Comments When the patient has NO PULSE: Full Code / CPR Who Made the Decision? Default/Not Discussed Care Teams Cushion Installer Relationship Specialty Start Date End Date Katharine Cortés, ALYSIA [address] [place] [phone] PCP - General Family Medicine - Primary Care 03/21/22
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
--- OUTSIDE RECORDS SUMMARY | 2024-09-25 00:44 | XMS_ITS | Encounter Summary ---
Author Organization [facility] Address [address] [place] [address] Care Team Providers Care Instruction Librarian Name Role Phone Katharine Cortés APRN Primary Care Provider [phone] Encounter Details Date Type Department Care Team (Late st Contact Info) Description 06/07/2022 Orders Only [facility] Orthopedic Trauma - [address] [address] Israel Hopkins MD [address] [place] [address] Type I or II open [...] Primary documented in this encounter Care Teams Instruction Librarian Relationship Specialty Start Date End Date Katharine Cortés APRN [address] [place] [address] PCP - General Family Medicine - Primary Care 03/21/22 documented as of this encounter
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
--- OUTSIDE RECORDS SUMMARY | 2024-09-25 00:44 | XMS_ITS | Encounter Summary ---
Author Organization [facility] Address [address] [place] [address] Care Team Providers Care Keg Inspector Name Role Phone Katharine Cortés ALYSIA Primary Care Provider [phone] Encounter Details Date Type Department Care Team (Latest Contact Info) Description 04/13/2022 11:10 EDT - 04/13/2022 23:59 EDT Hospital Encounter [address] [place], [place] [id number] Closed fracture of shaft of right femur [...] encounter documented in this encounter Care Teams Keg Inspector Relationship Specialty Start Date End Date Katharine Cortés APRN [address] [place] [phone] PCP - General Family Medicine - Primary Care 03/21/22 documented as of this encounter
--- OUTSIDE RECORDS SUMMARY | 2024-09-25 00:45 | XMS_ITS | Encounter Summary ---
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 [address] [place] [address] * (ABNORMAL) COMPLETE BLOOD COUNT (03/04/2022 6:22 EDT) WBC 15.47(H) 4.00 - 10.40 K/cmm 03/04/2022 6:37 EDT [facility] RBC 3.95(L) 4.36 - 5.78 M/cmm 03/04/2022 6:37 EDT [facility] Hemoglobin 12.6(L) 13.8 - 17.3 gm/dL 03/04/2022 6:37 T [facility] HCT 36.3(L) 39.5 - 50.2 % 03/04/2022 6:37 EDT [facility] MCV 92 81 - 95 fl 03/04/2022 6:37 EDT [facility] MCH 31.9 27.6 - 33.0 pg 03/04/2022 6:37 EDT [facility] MCHC 34.7 32.8 - 36.4 gm/dL 03/04/2022 6:37 T [facility] RDW-CV 14.6(H) <14.2 % 03/04/2022 6:37 T [facility] RDW-SD 49.4(H) <46.0 fl 03/04/2022 6:37 EDT [facility] PLT 142 141 - 377 K/cmm 03/04/2022 6:37 T [facility] MPV 11.0 9.5 - 12.7 fl 03/04/2022 6:37 [facility] Blood VENOUS BLOOD / Unknown Venipuncture / Unknown 03/04/2022 6:22 EDT 03/04/2022 6:27 EDT us Kellie Jose MD HEMATOLOGY & PF4 ORDERA BLES Final Result Performing Organization Address City/[facility]/ZIP Co de Phone Number [facility] [address] [place] [address] * LACTIC ACID (03/04/2022 6:22 EDT) Lactic Acid 1.6 <=2.0 mmol/L 03/04/2022 6:42 EDT [facility] Blood VENOUS BLOOD / Unknown Venipuncture / Unknown 03/04/2022 6:22 EDT 03/04/2022 6:27 EDT us Kellie Jose MD CHEMISTRY & BLOOD GAS O RDERABLES Final Result [facility] [address] [place] [address] * XR KNEE RIGHT 4 OR MORE [...] with the findings. us Cindy Peña MD [facility] DIAGNOSTIC IMAGING O RDERABLES Final Result * [...] with the findings. us Cindy Peña MD [facility] DIAGNO[facility]IC IMAGING O RDERABLES Final Result * [...] andagree with the findings. Cindy Peña MD IM CT ORDERABLES Final Result * [...] clear supplying vessel (venous axial image #[id number]). Sales Activity Manager: No additional findings. Procedure Note Royce Mccall [...] without clearsupplying vessel (venous axial image #[id number]). Sales Activity Manager: No additional findings. IMPRESSION 1. Sequela of [...] BLOOD CELLS (03/04/2022 1:33 EDT) Product Code S7516W51 [facility] Donor Number [id number] [facility] Unit ABO A [facility] Unit Rh POS [facility] Unit Status RE^Released From [employer]match [facility] Product Expiration Date [id number] [facility] Unit Blood Type Code 6200 [facility] Volume 330 [facility] Coding System [id number] [facility] Blood 03/04/2022 1:33 EDT Kellie Jose MD BLOOD BANK ORDERABLES F inal Result [facility] [address] [place] [address] * TYPE AND SCREEN (03/04/2022 1:30 EDT) ABO A 03/04/2022 4:08 EDT [facility] Rh Factor Positive 03/04/2022 4:08 EDT [facility] Antibody Screen Negative 03/04/2022 4:08 EDT [facility] Comment: Please evaluate patient for clinical significance. Visible hemolysis observed in specimen. Specimen Expires: 03/07/2022 @ 23:59 03/04/2022 4:08 EDT [facility] Blood VENOUS BLOOD / Unknown Venipuncture / Unknown 03/04/2022 1:30 EDT 03/04/2022 1:38 EDT us Kellie Jose MD BLOOD BANK TESTS Edited Result - Final Performing Organization Address [facility]/ZIP Co de Phone Number [facility] [address] [place] [address] * PATIENT RE-TYPE (03/04/2022 1:30 EDT) ABO A 03/04/2022 2:13 EDT [facility] Rh Factor Positive 03/04/2022 2:13 EDT [facility] Blood VENOUS BLOOD / Unknown Venipuncture / Unknown 03/04/2022 1:30 EDT 03/04/2022 1:38 EDT us Kellie Jose MD BLOOD BANK TESTS Final Result Performing Organization Address [facility] Co de Phone Number [facility] [address] [place] [address] * (ABNORMAL) PTT (03/04/2022 1:30 EDT) PTT 23(L) 26 - 37 secs 03/04/2022 1:49 EDT [facility] Blood VENOUS BLOOD / Unknown Venipuncture / Unknown 03/04/2022 1:30 EDT 03/04/2022 1:33 EDT us Kellie Jose MD HEMATOLOGY & PF4 ORDERA BLES Final Result Performing Organization Address City/[facility]/ZIP Co de Phone Number [facility] [address] [place] [address] * PROTIME (03/04/2022 1:30 EDT) [facility] I.N.R. 1.0 0.9 - 1.1 Ratio 03/04/2022 1:49 [facility] Pro Time 11.8 10.4 - 12.6 secs 03/04/2022 1:49 [facility] Blood VENOUS BLOOD / Unknown Venipuncture / Unknown 03/04/2022 1:30 EDT 03/04/2022 1:33 EDT Narrative [facility] - 03/04/2022 1:49 EDT Moderate Intensity Coumadin INR = 2.0-3.0 Adjustments in anticoagulant therapy dose should be based on the INR and NOT on the Protime. us Kellie Jose MD HEMATOLOGY & PF4 ORDERA BLES Final Result [facility] [address] [place] [address] * (ABNORMAL) COMPLETE BLOOD COUNT AND DIFFERENTIAL (03/04/2022 1:30 EDT) [facility] WBC 28.09(H) 4.00 - 10.40 K/cmm 03/04/2022 1:41 [facility] RBC 4.01(L) 4.36 - 5.78 M/cmm 03/04/2022 1:41 [facility] Hemoglobin 12.7(L) 13.8 - 17.3 gm/dL 03/04/2022 1:41 [facility] HCT 36.3(L) 39.5 - 50.2 % 03/04/2022 1:41 [facility] MCV 91 81 - 95 fl 03/04/2022 1:41 [facility] MCH 31.7 27.6 - 33.0 pg 03/04/2022 1:41 [facility] MCHC 35.0 32.8 - 36.4 gm/dL 03/04/2022 1:41 [facility] RDW-CV 14.0 <14.2 % 03/04/2022 1:41 [facility] RDW-SD 46.5(H) <46.0 fl 03/04/2022 1:41 [facility] PLT 175 141 - 377 K/cmm 03/04/2022 1:41 [facility] MPV 11.2 9.5 - 12.7 fl 03/04/2022 1:41 [facility] % Neutrophils 87.4 % 03/04/2022 1:41 [facility] % Lymphocytes 6.4 % 03/04/2022 1:41 [facility] % Monocytes 4.9 % 03/04/2022 1:41 [facility] % Eosinophils 0.1 % 03/04/2022 1:41 [facility] % Basophils 0.5 % 03/04/2022 1:41 [facility] % Immature Grans 0.7 % 03/04/20 1:41 [facility] Absolute Neutrophils 24.56(H) 2.20 - 8.85 K/cmm 03/04/2022 1:41 [facility] Absolute Lymphocytes 1.81 1.09 - 3.30 K/cmm 03/04/2022 1:41 [facility] Absolute Monocytes 1.37(H) 0.10 - 0.80 K/cmm 03/04/2022 1:41 [facility] Absolute Eosinophils 0.03 0.03 - 0.61 K/cmm 03/04/2022 1:41 [facility] ABS Basophils 0.13(H) 0.01 - 0.11 K/cmm 03/04/2022 1:41 [facility] Absolute Immature Grans 0.19(H) 0.00 - 0.06 K/cmm 03/04/2022 1:41 [facility] Type of Differential: Auto 03/04/2022 1:41 [facility] Blood VENOUS BLOOD / Unknown Venipuncture / Unknown 03/04/2022 1:30 EDT 03/04/2022 1:33 EDT us Kellie Jose MD PACKAGES & DNA PROBE OR DERABLES Final Result Performing Organization Address [facility] Co de Phone Number [facility] [address] [place] [address] * (ABNORMAL) POCT BLOOD GAS, EG6 I-STAT (03/04/2022 1:30 EDT) pH, Venous, i-STAT 7.33 7.31 - 7.41 03/04/2022 1:33 EDT [facility] pCO2, Venous, i-STAT 42 41 - 51 mmHg 03/04/2022 1:33 EDT [facility] pO2, Venous, i-STAT 41 30 - 50 mmHg 03/04/2022 1:33 EDT [facility] TCO2, Venous, i-STAT 23 22 - 28 mmol/L 03/04/2022 1:33 EDT [facility] O2 Saturation, Venous, i-STAT 72 60 - 85 % 03/04/2022 1:33 EDT [facility] Base Excess(+) / Deficit(-), Venous, i-STAT -4(L) -2 - 3 mmol/L 03/04/2022 1:33 EDT [facility] Blood VENOUS BLOOD / Unknown 03/04/2022 1:30 EDT 03/04/2022 1:33 EDT Narrative [facility] - 03/04/2022 1:33 EDT Test Performed by Respiratory us Kellie Jose MD POINT OF CARE TEST ORDE RABLES Final Result Performing Organization Address City/[facility]/ZIP Co de Phone Number [facility] [address] [place] [address] * (ABNORMAL) LACTIC ACID (03/04/2022 1:29 EDT) Lactic Acid 3.2(HH) <=2.0 mmol/L 03/04/2022 1:53 EDT [facility] Blood VENOUS BLOOD / Unknown Venipuncture / Unknown 03/04/2022 1:29 EDT 03/04/2022 1:34 EDT us Kellie Jose MD CHEMISTRY & BLOOD GAS O RDERABLES Final Result [facility] [address] [place] [address] * (ABNORMAL) SCREENING GLUCOSE (03/04/2022 1:29 EDT) Glucose, Screening 123(H) 70 - 100 mg/dL 03/04/2022 1:47 EDT [facility] Blood VENOUS BLOOD / Unknown Venipuncture / Unknown 03/04/2022 1:29 EDT 03/04/2022 1:34 EDT us Kellie Jose MD CHEMISTRY & BLOOD GAS O RDERABLES Final Result Performing Organization Address City/[facility]/ZIP Co de Phone Number [facility] [address] [place] [address] * CREATININE (03/04/2022 1:29 EDT) Creatinine 0.75 0.66 - 1.25 mg/dL 03/04/2022 1:47 EDT [facility] eGFR 121 >60 mL/min/1.73 m2 03/04/2022 1:47 EDT [facility] Blood VENOUS BLOOD / Unknown Venipuncture / Unknown 03/04/2022 1:29 EDT 03/04/2022 1:34 EDT us Kellie Jose MD CHEMISTRY & BLOOD GAS O RDERABLES Final Result [facility] [address] [place] [address] * BUN (03/04/2022 1:29 EDT) BUN 11 10 - 26 mg/dL 03/04/2022 1:53 EDT [facility] Comment: Slight hemolysis identified, interpret with caution as results may be affected due to hemolysis. Blood VENOUS BLOOD / Unknown Venipuncture / Unknown 03/04/2022 1:29 EDT 03/04/2022 1:34 EDT Kellie Jose MD CHEMISTRY & BLOOD GAS O RDERABLES Final Result [facility] [address] [place] [address] * (ABNORMAL) ELECTROLYTES (03/04/2022 1:29 EDT) Sodium 140 136 - 145 mmol/L 03/04/2022 1:53 EDT [facility] Potassium 4.5 3.5 - 5.0 mmol/L 03/04/2022 1:53 EDT [facility] Comment:Slight hemolysis annabelle ntified, interpret with caution as hemolysis will elevate potassium result. Chloride 111(H) 96 - 110 mmol/L 03/04/2022 1:53 EDT [facility] CO2 Total 19(L) 22 - 32 mmol/L 03/04/2022 1:53 T [facility] Anion Gap 10 5 - 14 03/04/2022 1:53 EDT [facility] Blood VENOUS BLOOD / Unknown Venipuncture / Unknown 03/04/2022 1:29 EDT 03/04/2022 1:34 EDT Kellie Jose MD CHEMISTRY & BLOOD GAS O RDERABLES Final Result Performing Organization Address [facility]/ZIP Co de Phone Number [facility] [address] [place] [address] documented in this encounter Visit Diagnoses Diagnosis Other fracture of right femur, initial encounter for closed fracture ([facility] Primary Other fracture of right femur, initial encounter for closed fracture ([facility]) Testicular injury, initial encounter History of femur fracture Personal history of traumatic fracture Other fracture of right femur, initial encounter for closed fracture ([facility]) Testicular injury, initial encounter documented in this encounter Admitting Diagnoses Diagnosis Other fracture of right femur, initial encounter for closed fracture ([facility]) History of femur fracture Personal history of [...] Ena Pascual RN) 0216 (Given - Provider: nEa Pascual RN)0804 (Given - Provider: Ilya Howard [...] 2 g, intravenous, Administer over 5 Minutes, TOE TRIMMER TO O.R., 1 dose, First dose on [...] Levi Maldonado RN) 101 (Given - Provider: Ilya Howard RN) 0911 [...] 5-15 mg 1 03/04/2022 polyethylene glycol 3350 ([place] RALAX) packet 17 g 1 03/04/2022 povidone-iodine [...] 03/04/2022 documented in this encounter Care Teams Electrical Mechanic Relationship Specialty Start Date End Date None, Provider PCP - General 03/04/22 03/20/22 documented as of this encounter
--- OUTSIDE RECORDS SUMMARY | 2024-09-25 00:45 | XMS_ITS | Encounter Summary ---
Author Organization [facility] Address [address] [place] [address] Care Team Providers Care Medical Customer Service Representative Name Role Phone None, Provider Primary Care [...] on filedocumented in this encounter Care Teams Medical Customer Service Representative Relationship Specialty Start Date End Date None, Provider PCP - General 03/04/22 03/20/22 documented as of this encounter
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
== END 2024-09-25 01:01 ==
LOC: DI 00:41
PROVIDERS: PCP Student in an Organized Health Care Education/Training Program; Visit Provider Student in an Organized Health Care Education/Training Program
DX: I80.292 Phlebitis and thrombophlebitis of other deep vessels of left lower extremity (principal)
CPT/HCPCS: 93971

== ENCOUNTER 2024-09-25 07:45 | Outpatient (CLI) | payer MEDICAID, SELFPAY ==
[2024-09-25 08:12] LABS: Abs Immature Grans 0.02 10^3/uL (0.0-0.06); Absolute Basophil Count 0.09 10^3/uL (0.0-0.2); Absolute Eosinophil Count 0.42 10^3/uL (0.0-0.7); Absolute Lymphocyte Count 3.31 10^3/uL (1.2-3.4); Absolute Monocyte Count 0.59 10^3/uL (0.1-0.8); Absolute Neutrophil Count 4.47 10^3/uL (1.2-6.7); Eosinophils % 4.7 %; HCT 45.2 % (40.0-50.0); HGB 15.5 g/dL (13.5-17.5); Immature Grans % 0.2 %; Lymphocytes % 37.2 %; MCH 30.9 pg (27.0-33.0); MCHC 34.3 % (32.0-36.0); MCV 90 fL (80-95); MPV 11.1 fL (8.0-11.0); Monocytes % 6.6 %; Neutrophils % 50.3 %; Platelet Count 204 10^3/uL (130-400); RBC 5.01 10^6/uL (4.36-5.78); RDW 13.2 % (11.8-14.1)
[2024-09-25 08:28] LABS: ALT 17 U/L (16-63); AST 17 U/L (15-37); Albumin 3.6 g/dL (3.4-5.0); Alkaline Phosphatase 114 U/L (46-116); Anion Gap 6.3 mmol/L (3-11); BUN 10 mg/dL (7-18); Bilirubin, Total 0.52 mg/dL (0.2-1.0); CO2 29.7 mmol/L (21.0-32.0); CREATININE 1.1 mg/dL (0.70-1.30); Calcium 8.9 mg/dL (8.5-10.1); Calculated LDL 99 mg/dL (<100); Chloride 106 mmol/L (98-107); Cholesterol 175 mg/dL (<200); Estimated GFR 88.12 (mL/min/1.73m2); Glucose 99 mg/dL (74-106); HDL Cholesterol 54 mg/dL (40-60); Potassium 4.1 mmol/L (3.5-5.1); Sodium 142 mmol/L (136-145); TSH (W/Ref FT4) 3.46 uIU/mL (0.36-3.74); Total Protein 6.8 g/dL (6.4-8.2); Triglyceride 113 mg/dL (<150)
[2024-09-28 10:12] LABS: Lyme Ab w Rflx to Lyme Confirm Negative (Negative)
[2024-09-30 14:24] LABS: Testosterone, Total 797 ng/dL (240-950)
== END 2024-09-25 07:46 | disposition home or self-care (01) ==
LOC: LBO 07:45
PROVIDERS: PCP Student in an Organized Health Care Education/Training Program; Visit Provider Student in an Organized Health Care Education/Training Program
DX: R53.83 Other fatigue (principal); Z13.220 Encounter for screening for lipoid disorders
CPT/HCPCS: 36415; 80053; 80061; 84403; 84443; 85025; 86618